=== PATIENT | male | born 1945 | race Caucasian/White ===

== ENCOUNTER → 2017-06-03 08:13 | Outpatient (CLI) | payer MEDICARE, SELFPAY ==
[2017-06-03 09:06] LABS: Basophils # 0.1 K/mm3 (0-0.2); Basophils % 0.9 % (0.1-2.0); Eosinophils # 0.3 K/mm3 (0.0-0.4); Eosinophils % 4.1 % (0.1-12.0); Hematocrit 41.1 % (42.0-52.0); Hemoglobin 13.4 g/dL (14.1-18.0); Lymphocytes # 2.4 K/mm3 (0.7-4.5); Lymphocytes % 39.1 K/mm3 (10-50); Mean Corpuscular HGB Conc 32.7 g/dL (31.8-35.4); Mean Corpuscular Hemoglobin 31.3 pg (27.0-31.2); Mean Corpuscular Volume 95.8 fl (80-94); Monocytes # 0.2 K/mm3 (0.1-1.0); Monocytes % 3.7 % (1.7-9.3); Neutrophils # 3.2 K/mm3 (1.8-7.8); Neutrophils % 52.1 % (37.0-80.0); Platelet Count 121 K/mm3 (142-424); Red Blood Count 4.29 M/mm3 (4.60-6.20); Red Cell Distribution Width 14.5 % (11.5-17.5); White Blood Count 6.2 K/mm3 (4.8-10.8)
[2017-06-03 11:03] LABS: Alanine Aminotransferase 32 U/L (12-78); Albumin/Globulin Ratio 1.3 (1.1-1.8); Alkaline Phosphatase 75 U/L (46-116); Anion Gap 9.6 mEq/L (5-15); Aspartate Amino Transferase 27 U/L (15-37); Bilirubin,Total 0.4 mg/dL (0.2-1.0); Blood Urea Nitrogen 18 mg/dL (7-18); Calcium 8.8 mg/dL (8.5-10.1); Carbon Dioxide 32 mmol/L (21.0-32.0); Chloride 104 mmol/L (98-107); Chol/HDL Ratio 3.1 (1-3.5); Cholesterol 94 mg/dL (140-200); Estimated Glomerular Filt Rate 50 ml/min (>60); GFR (African American) 61 ML/MIN (>60); Globulin 3.1 gm/dl (1.3-3.2); Glucose 142 mg/dL (74-106); HDL Cholesterol 30 mg/dL (27-67); LDL Cholesterol 10 mg/dL (0-130); Potassium 4.6 mmoL/L (3.5-5.1); Sodium 141 mmol/L (136-145); Total Protein,Serum 7.1 gm/dL (6.4-8.2); Triglycerides 269 mg/dL (30-200); VLDL Cholesterol 54 mg/dL (0-40)
[2017-06-03 11:59] LABS: Hemoglobin A1C 7.6 % (0.0-7.0)
[2017-06-04 16:22] LABS: Albumin 4.1 g/dL (2.9-4.4); Alpha-1-Globulin 0.2 g/dL (0.0-0.4); Alpha-2-Globulin 0.8 g/dL (0.4-1.0); Gamma Globulin 1.1 g/dL (0.4-1.8); Protein, Total 7.2 g/dL (6.0-8.5)
[2017-06-04 20:10] LABS: Microalbumin, Urine 39.2 ug/mL (Not Estab.)
== END ==
PROVIDERS: PCP Physician Assistant; Visit Provider Internal Medicine
DX: I10 Essential (primary) hypertension (principal); E11.9 Type 2 diabetes mellitus without complications; E78.5 Hyperlipidemia, unspecified
CPT/HCPCS: 36415; 80053; 80061; 82043; 83036; 84165; 85025

== ENCOUNTER → 2017-06-09 10:01 | Outpatient (CLI) | payer MEDICARE, SELFPAY ==
[2017-06-09 10:23] LABS: Basophils # 0.1 K/mm3 (0-0.2); Basophils % 0.7 % (0.1-2.0); Eosinophils # 0.3 K/mm3 (0.0-0.4); Eosinophils % 4.3 % (0.1-12.0); Hematocrit 40.5 % (42.0-52.0); Hemoglobin 13.4 g/dL (14.1-18.0); Lymphocytes # 2.7 K/mm3 (0.7-4.5); Mean Corpuscular HGB Conc 33.1 g/dL (31.8-35.4); Mean Corpuscular Hemoglobin 31.8 pg (27.0-31.2); Mean Platelet Volume 8.2 fl (7.4-10.4); Monocytes # 0.3 K/mm3 (0.1-1.0); Monocytes % 3.9 % (1.7-9.3); Neutrophils # 4.1 K/mm3 (1.8-7.8); Neutrophils % 55.1 % (37.0-80.0); Platelet Count 126 K/mm3 (142-424); Red Blood Count 4.22 M/mm3 (4.60-6.20); Red Cell Distribution Width 14.6 % (11.5-17.5); White Blood Count 7.5 K/mm3 (4.8-10.8)
[2017-06-09 11:42] LABS: Alanine Aminotransferase 35 U/L (12-78); Albumin Level 4.1 gm/dL (3.4-5.0); Albumin/Globulin Ratio 1.3 (1.1-1.8); Alkaline Phosphatase 65 U/L (46-116); Anion Gap 16.1 mEq/L (5-15); Aspartate Amino Transferase 26 U/L (15-37); Bilirubin,Total 0.5 mg/dL (0.2-1.0); Blood Urea Nitrogen 23 mg/dL (7-18); Calcium 9.2 mg/dL (8.5-10.1); Carbon Dioxide 30 mmol/L (21.0-32.0); Chloride 103 mmol/L (98-107); Estimated Glomerular Filt Rate 50 ml/min (>60); GFR (African American) 61 ML/MIN (>60); Globulin 3.2 gm/dl (1.3-3.2); Glucose 188 mg/dL (74-106); Potassium 5.1 mmoL/L (3.5-5.1); Sodium 144 mmol/L (136-145); Total Protein,Serum 7.3 gm/dL (6.4-8.2)
== END ==
PROVIDERS: PCP Internal Medicine; Visit Provider Internal Medicine
DX: C43.9 Malignant melanoma of skin, unspecified (principal); E11.9 Type 2 diabetes mellitus without complications
CPT/HCPCS: 36415; 80053; 85025

== ENCOUNTER → 2017-06-15 13:00 | Outpatient (CLI) | payer MEDICARE, SELFPAY ==
--- NOTE | 2017-06-15 13:05 | CT_ITS ---
CT head/brain wo/w con HISTORY: Dizziness, imbalance ITS.REASON: MULTIPLE LYELOMA, DM ORDERING PHYSICIAN: Martin Jacome MD PATIENT AGE: 71 years COMPARISON: 10/14/2014 TECHNIQUE: Axial images obtained without and with contrast. 75 mL's Isovue-300 utilized Brain and bone windows reviewed. FINDINGS: No midline shift, mass effect, intracranial hemorrhage, hydrocephalus, or extra-axial fluid collection is evident. No enhancing lesions are evident. The cerebellum and posterior fossa have an unremarkable appearance. No obvious enhancing cerebellopontine angle mass. Mild periventricular ischemic gliotic changes are noted. The calvarium has an unremarkable appearance. No sinus air-fluid level. There is a 2 cm retention cyst in the sphenoid sinus on the right there is mild mucosal thickening of the ethmoid sinuses. Small amount fluid is present in the left mastoid sinus.. IMPRESSION: 1. No acute intracranial findings. No enhancing lesions 2. Mild sinus disease 3. Fluid within the left mastoid sinus suggesting underlying inflammatory change
--- NOTE | 2017-06-15 14:14 | HMH.ITSHM ---
VITAMIN OTC CALCIUM B12 JANUVIA GLIPIZIDE FUROSEMIDE MYRON ASPIRIN GABAPENTIN LYRICA LOSARTAN POTASSIUM ROSUVASTATIN CALCIUM POTASSIUM CL
== END ==
PROVIDERS: Family Provider Physician Assistant; PCP Internal Medicine; Visit Provider Internal Medicine
DX: C90.01 Multiple myeloma in remission (principal)
CPT/HCPCS: 70470; Q9967

== ENCOUNTER → 2017-10-06 07:22 | Outpatient (CLI) | payer MEDICARE, SELFPAY ==
[2017-10-06 08:19] LABS: Basophils % 0.7 % (0.1-2.0); Eosinophils # 0.3 K/mm3 (0.0-0.4); Eosinophils % 4.1 % (0.1-12.0); Hematocrit 39.3 % (42.0-52.0); Hemoglobin 13.2 g/dL (14.1-18.0); Mean Corpuscular HGB Conc 33.5 g/dL (31.8-35.4); Mean Corpuscular Hemoglobin 31.6 pg (27.0-31.2); Mean Corpuscular Volume 94.4 fl (80-94); Mean Platelet Volume 8.3 fl (7.4-10.4); Monocytes # 0.2 K/mm3 (0.1-1.0); Monocytes % 3.9 % (1.7-9.3); Neutrophils # 3.5 K/mm3 (1.8-7.8); Neutrophils % 58.4 % (37.0-80.0); Platelet Count 124 K/mm3 (142-424); Red Blood Count 4.16 M/mm3 (4.60-6.20); Red Cell Distribution Width 14.5 % (11.5-17.5)
[2017-10-06 10:04] LABS: Chol/HDL Ratio 3.6 (1-3.5); Cholesterol 109 mg/dL (140-200); HDL Cholesterol 30 mg/dL (27-67); LDL Cholesterol 3 mg/dL (0-130); Triglycerides 381 mg/dL (30-200); VLDL Cholesterol 76 mg/dL (0-40)
[2017-10-06 10:07] LABS: Alanine Aminotransferase 34 U/L (12-78); Albumin Level 3.8 gm/dL (3.4-5.0); Albumin/Globulin Ratio 1.2 (1.1-1.8); Alkaline Phosphatase 75 U/L (46-116); Anion Gap 12.7 mEq/L (5-15); Aspartate Amino Transferase 27 U/L (15-37); Bilirubin,Total 0.5 mg/dL (0.2-1.0); Blood Urea Nitrogen 19 mg/dL (7-18); Calcium 9.4 mg/dL (8.5-10.1); Carbon Dioxide 30 mmol/L (21.0-32.0); Chloride 105 mmol/L (98-107); Creatinine,Serum 1.34 mg/dL (0.70-1.30); Estimated Glomerular Filt Rate 53 ml/min (>60); GFR (African American) 64 ML/MIN (>60); Globulin 3.3 gm/dl (1.3-3.2); Potassium 4.7 mmoL/L (3.5-5.1); Sodium 143 mmol/L (136-145); Total Protein,Serum 7.1 gm/dL (6.4-8.2)
[2017-10-06 11:15] LABS: Glucose 171 mg/dL (74-106)
[2017-10-07 07:20] LABS: Immunoglobulin A, Qn 166 mg/dL (61-437); Immunoglobulin G, Qn 970 mg/dL (700-1600)
[2017-10-07 21:16] LABS: Immunoglobulin M, Qn 91 mg/dL (20-172)
[2017-10-07 21:17] LABS: Microalbumin, Urine 18.9 ug/mL (Not Estab.)
== END ==
PROVIDERS: Internal Medicine; Visit Provider Physician Assistant
DX: E11.9 Type 2 diabetes mellitus without complications (principal); I10 Essential (primary) hypertension; E78.5 Hyperlipidemia, unspecified; C90.00 Multiple myeloma not having achieved remission
CPT/HCPCS: 36415; 80053; 80061; 82043; 82784; 83036; 85025

== ENCOUNTER → 2018-04-21 07:42 | Outpatient (CLI) | payer MEDICARE, SELFPAY ==
[2018-04-21 08:48] LABS: Basophils # 0.1 K/mm3 (0-0.2); Basophils % 0.9 % (0.1-2.0); Eosinophils # 0.3 K/mm3 (0.0-0.4); Eosinophils % 4.4 % (0.1-12.0); Hematocrit 43.9 % (42.0-52.0); Hemoglobin 13.7 g/dL (14.1-18.0); Lymphocytes # 2.4 K/mm3 (0.7-4.5); Lymphocytes % 35.1 % (10-50); Mean Corpuscular HGB Conc 31.2 g/dL (31.8-35.4); Mean Corpuscular Hemoglobin 30.8 pg (27.0-31.2); Mean Corpuscular Volume 98.7 fl (80-94); Mean Platelet Volume 7.4 fl (7.4-10.4); Monocytes # 0.3 K/mm3 (0.1-1.0); Monocytes % 4.1 % (1.7-9.3); Neutrophils # 3.8 K/mm3 (1.8-7.8); Neutrophils % 55.5 % (37.0-80.0); Platelet Count 133 K/mm3 (142-424); Red Blood Count 4.45 M/mm3 (4.60-6.20); Red Cell Distribution Width 14.9 % (11.5-17.5); White Blood Count 6.8 K/mm3 (4.8-10.8)
[2018-04-21 09:01] LABS: Hemoglobin A1C 7.4 % (0.0-7.0)
[2018-04-21 09:22] LABS: Alanine Aminotransferase 41 U/L (12-78); Albumin/Globulin Ratio 1.2 (1.1-1.8); Alkaline Phosphatase 73 U/L (46-116); Aspartate Amino Transferase 26 U/L (15-37); Bilirubin,Total 0.3 mg/dL (0.2-1.0); Blood Urea Nitrogen 24 mg/dL (7-18); Calcium 9.7 mg/dL (8.5-10.1); Carbon Dioxide 31 mmol/L (21.0-32.0); Chloride 105 mmol/L (98-107); Chol/HDL Ratio 2.8 (1-3.5); Cholesterol 94 mg/dL (140-200); Creatinine,Serum 1.54 mg/dL (0.70-1.30); Estimated Glomerular Filt Rate 45 ml/min (>60); Free T4 (Free Thyroxine) 0.41 ng/dl (0.76-1.46); GFR (African American) 54 ML/MIN (>60); Globulin 3.3 gm/dl (1.3-3.2); Glucose 156 mg/dL (74-106); HDL Cholesterol 33 mg/dL (27-67); LDL Cholesterol 21 mg/dL (0-130); Sodium 144 mmol/L (136-145); Thyroid Stimulating Hormone 22.72 uIU/ml (0.358-3.740); Total Protein,Serum 7.3 gm/dL (6.4-8.2); Triglycerides 200 mg/dL (30-200); VLDL Cholesterol 40 mg/dL (0-40)
[2018-04-22 15:11] LABS: Microalbumin, Urine 10.2 ug/mL (Not Estab.)
[2018-04-22 15:17] LABS: Albumin 3.8 g/dL (2.9-4.4); Alpha-1-Globulin 0.2 g/dL (0.0-0.4); Alpha-2-Globulin 0.8 g/dL (0.4-1.0); Gamma Globulin 1.2 g/dL (0.4-1.8); Protein, Total 7.1 g/dL (6.0-8.5)
== END ==
PROVIDERS: PCP Physician Assistant; Visit Provider Internal Medicine
DX: C90.01 Multiple myeloma in remission (principal); E11.9 Type 2 diabetes mellitus without complications; E78.5 Hyperlipidemia, unspecified; I10 Essential (primary) hypertension
CPT/HCPCS: 36415; 80053; 80061; 82043; 83036; 84155; 84165; 84439; 84443; 85025

== ENCOUNTER → 2018-10-19 08:41 | Outpatient (CLI) | payer MEDICARE, SELFPAY ==
[2018-10-19 09:06] LABS: Basophils # 0.1 K/mm3 (0-0.2); Basophils % 0.7 % (0.1-2.0); Eosinophils # 0.4 K/mm3 (0.0-0.4); Eosinophils % 4.5 % (0.1-12.0); Hematocrit 42.2 % (42.0-52.0); Hemoglobin 13.4 g/dL (14.1-18.0); Lymphocytes # 2.2 K/mm3 (0.7-4.5); Lymphocytes % 28.4 % (10-50); Mean Corpuscular HGB Conc 31.7 g/dL (31.8-35.4); Mean Corpuscular Hemoglobin 30.4 pg (27.0-31.2); Monocytes # 0.3 K/mm3 (0.1-1.0); Monocytes % 3.4 % (1.7-9.3); Neutrophils # 4.9 K/mm3 (1.8-7.8); Neutrophils % 62.9 % (37.0-80.0); Platelet Count 154 K/mm3 (142-424); Red Blood Count 4.39 M/mm3 (4.60-6.20); Red Cell Distribution Width 14.5 % (11.5-17.5); White Blood Count 7.8 K/mm3 (4.8-10.8)
[2018-10-19 10:23] LABS: Chol/HDL Ratio 3.5 (1-3.5); Cholesterol 87 mg/dL (140-200); HDL Cholesterol 25 mg/dL (27-67); LDL Cholesterol 15 mg/dL (0-130); Triglycerides 237 mg/dL (30-200); VLDL Cholesterol 47 mg/dL (0-40)
[2018-10-19 10:27] LABS: Alanine Aminotransferase 36 U/L (12-78); Albumin Level 3.7 gm/dL (3.4-5.0); Albumin/Globulin Ratio 1.2 (1.1-1.8); Alkaline Phosphatase 70 U/L (46-116); Anion Gap 12.7 mEq/L (5-15); Aspartate Amino Transferase 28 U/L (15-37); Bilirubin,Total 0.4 mg/dL (0.2-1.0); Blood Urea Nitrogen 18 mg/dL (7-18); Calcium 9.2 mg/dL (8.5-10.1); Carbon Dioxide 28 mmol/L (21.0-32.0); Chloride 107 mmol/L (98-107); Estimated Glomerular Filt Rate 54 ml/min (>60); GFR (African American) 66 ML/MIN (>60); Globulin 3.2 gm/dl (1.3-3.2); Glucose 177 mg/dL (74-106); Potassium 4.7 mmoL/L (3.5-5.1); Sodium 143 mmol/L (136-145); Total Protein,Serum 6.9 gm/dL (6.4-8.2)
[2018-10-19 11:23] LABS: Hemoglobin A1C 7.4 % (0.0-7.0)
[2018-10-20 15:23] LABS: Albumin 3.7 g/dL (2.9-4.4); Alpha-1-Globulin 0.3 g/dL (0.0-0.4); Alpha-2-Globulin 0.8 g/dL (0.4-1.0); Free Kappa Lt Chains 26.8 mg/L (3.3-19.4); Free Lambda Lt Chains 20.5 mg/L (5.7-26.3); Gamma Globulin 1.2 g/dL (0.4-1.8); Immunoglobulin A, Qn 192 mg/dL (61-437); Immunoglobulin G, Qn 1003 mg/dL (700-1600); Immunoglobulin M, Qn 101 mg/dL (15-143)
== END ==
PROVIDERS: Nurse Practitioner Family; Visit Provider Internal Medicine Medical Oncology
DX: E11.8 Type 2 diabetes mellitus with unspecified complications (principal); E78.5 Hyperlipidemia, unspecified; I10 Essential (primary) hypertension; Z79.84 Long term (current) use of oral hypoglycemic drugs
CPT/HCPCS: 36415; 80053; 80061; 82784; 83036; 83883; 84155; 84165; 85025; 86334

== ENCOUNTER → 2019-01-19 08:43 | Outpatient (CLI) | payer MEDICARE, SELFPAY ==
[2019-01-19 09:18] LABS: Basophils % 0.5 % (0.1-2.0); Eosinophils # 0.3 K/mm3 (0.0-0.4); Hematocrit 39.4 % (42.0-52.0); Hemoglobin 12.9 g/dL (14.1-18.0); Lymphocytes # 1.9 K/mm3 (0.7-4.5); Lymphocytes % 31.3 % (10-50); Mean Corpuscular HGB Conc 32.8 g/dL (31.8-35.4); Mean Corpuscular Hemoglobin 30.6 pg (27.0-31.2); Mean Corpuscular Volume 93.2 fl (80-94); Mean Platelet Volume 7.6 fl (7.4-10.4); Monocytes # 0.4 K/mm3 (0.1-1.0); Monocytes % 6.1 % (1.7-9.3); Neutrophils # 3.4 K/mm3 (1.8-7.8); Platelet Count 151 K/mm3 (142-424); Red Blood Count 4.23 M/mm3 (4.60-6.20); Red Cell Distribution Width 14.4 % (11.5-17.5)
[2019-01-19 10:19] LABS: Alanine Aminotransferase 27 U/L (12-78); Albumin Level 3.6 gm/dL (3.4-5.0); Albumin/Globulin Ratio 1.1 (1.1-1.8); Alkaline Phosphatase 77 U/L (46-116); Anion Gap 12.5 mEq/L (5-15); Aspartate Amino Transferase 24 U/L (15-37); Bilirubin,Total 0.4 mg/dL (0.2-1.0); Blood Urea Nitrogen 15 mg/dL (7-18); Carbon Dioxide 29 mmol/L (21.0-32.0); Chloride 106 mmol/L (98-107); Chol/HDL Ratio 3.7 (1-3.5); Cholesterol 93 mg/dL (140-200); Creatinine,Serum 1.33 mg/dL (0.70-1.30); Estimated Glomerular Filt Rate 53 ml/min (>60); Free Thyroxine Index 1.5 ug/dL (5.93-13.13); GFR (African American) 64 ML/MIN (>60); Globulin 3.4 gm/dl (1.3-3.2); Glucose 150 mg/dL (74-106); HDL Cholesterol 25 mg/dL (27-67); LDL Cholesterol 24 mg/dL (0-130); Potassium 4.5 mmoL/L (3.5-5.1); Sodium 143 mmol/L (136-145); T4 (Thyroxine) 4.8 ug/dl (4.7-13.3); Thyroid Stimulating Hormone 8.19 uIU/ml (0.358-3.740); Triglycerides 222 mg/dL (30-200); Triiodothryronine (T3) Uptake 31 % (31-39); VLDL Cholesterol 44 mg/dL (0-40)
[2019-01-19 10:45] LABS: Hemoglobin A1C 6.8 % (0.0-7.0)
[2019-01-20 16:20] LABS: Albumin 3.4 g/dL (2.9-4.4); Alpha-1-Globulin 0.3 g/dL (0.0-0.4); Alpha-2-Globulin 0.8 g/dL (0.4-1.0); Gamma Globulin 1.2 g/dL (0.4-1.8); Protein, Total 6.7 g/dL (6.0-8.5)
[2019-01-20 18:08] LABS: Free Kappa Lt Chains 29.7 mg/L (3.3-19.4); Free Lambda Lt Chains 18.8 mg/L (5.7-26.3)
== END ==
PROVIDERS: Internal Medicine Hematology & Oncology; Visit Provider Nurse Practitioner Family
DX: E11.8 Type 2 diabetes mellitus with unspecified complications (principal); E78.5 Hyperlipidemia, unspecified; I10 Essential (primary) hypertension; C90.01 Multiple myeloma in remission; Z79.84 Long term (current) use of oral hypoglycemic drugs
CPT/HCPCS: 36415; 80053; 80061; 83036; 83883; 84155; 84165; 84436; 84443; 84479; 85025

== ENCOUNTER → 2019-05-18 08:25 | Outpatient (CLI) | payer MEDICARE, SELFPAY ==
[2019-05-18 13:53] LABS: Basophils # 0.1 K/mm3 (0-0.2); Basophils % 0.7 % (0.1-2.0); Eosinophils # 0.5 K/mm3 (0.0-0.4); Eosinophils % 5.8 % (0.1-12.0); Hematocrit 44.4 % (42.0-52.0); Hemoglobin 14.5 g/dL (14.1-18.0); Lymphocytes # 2.5 K/mm3 (0.7-4.5); Lymphocytes % 31.2 % (10-50); Mean Corpuscular HGB Conc 32.6 g/dL (31.8-35.4); Mean Corpuscular Hemoglobin 30.2 pg (27.0-31.2); Mean Corpuscular Volume 92.8 fl (80-94); Mean Platelet Volume 7.9 fl (7.4-10.4); Monocytes # 0.3 K/mm3 (0.1-1.0); Monocytes % 4.2 % (1.7-9.3); Neutrophils # 4.6 K/mm3 (1.8-7.8); Neutrophils % 58.2 % (37.0-80.0); Platelet Count 151 K/mm3 (142-424); Red Blood Count 4.78 M/mm3 (4.60-6.20); Red Cell Distribution Width 13.9 % (11.5-17.5); White Blood Count 7.9 K/mm3 (4.8-10.8)
[2019-05-18 14:21] LABS: Alanine Aminotransferase 26 U/L (12-78); Albumin Level 3.9 gm/dL (3.4-5.0); Albumin/Globulin Ratio 1.2 (1.1-1.8); Alkaline Phosphatase 60 U/L (46-116); Anion Gap 13.4 mEq/L (5-15); Aspartate Amino Transferase 26 U/L (15-37); Bilirubin,Total 0.4 mg/dL (0.2-1.0); Blood Urea Nitrogen 22 mg/dL (7-18); Calcium 9.2 mg/dL (8.5-10.1); Carbon Dioxide 27 mmol/L (21.0-32.0); Chloride 104 mmol/L (98-107); Chol/HDL Ratio 3.3 (1-3.5); Cholesterol 102 mg/dL (140-200); Creatinine,Serum 1.34 mg/dL (0.70-1.30); Estimated Glomerular Filt Rate 53 ml/min (>60); Free Thyroxine Index 3.1 ug/dL (5.93-13.13); GFR (African American) 64 ML/MIN (>60); Globulin 3.2 gm/dl (1.3-3.2); Glucose 137 mg/dL (74-106); HDL Cholesterol 31 mg/dL (27-67); LDL Cholesterol 39 mg/dL (0-130); Potassium 4.4 mmoL/L (3.5-5.1); Sodium 140 mmol/L (136-145); T4 (Thyroxine) 8.6 ug/dl (4.7-13.3); Thyroid Stimulating Hormone 2.16 uIU/ml (0.358-3.740); Total Protein,Serum 7.1 gm/dL (6.4-8.2); Triglycerides 160 mg/dL (30-200); Triiodothryronine (T3) Uptake 36 % (31-39); VLDL Cholesterol 32 mg/dL (0-40)
[2019-05-18 15:38] LABS: Hemoglobin A1C 6.6 % (0.0-7.0)
[2019-05-19 15:28] LABS: Albumin 3.9 g/dL (2.9-4.4); Alpha-1-Globulin 0.2 g/dL (0.0-0.4); Alpha-2-Globulin 0.7 g/dL (0.4-1.0); Gamma Globulin 1.2 g/dL (0.4-1.8); Immunoglobulin A, Qn 180 mg/dL (61-437); Immunoglobulin G, Qn 1196 mg/dL (700-1600); Protein, Total 7.2 g/dL (6.0-8.5)
[2019-05-19 16:10] LABS: Free Kappa Lt Chains 23.9 mg/L (3.3-19.4); Free Lambda Lt Chains 16.6 mg/L (5.7-26.3)
[2019-05-19 17:32] LABS: Immunoglobulin M, Qn 114 mg/dL (15-143)
== END ==
PROVIDERS: Internal Medicine Medical Oncology; PCP Nurse Practitioner Family; Visit Provider Nurse Practitioner Family
DX: E11.8 Type 2 diabetes mellitus with unspecified complications (principal); I10 Essential (primary) hypertension; E03.9 Hypothyroidism, unspecified; E78.5 Hyperlipidemia, unspecified; C90.00 Multiple myeloma not having achieved remission
CPT/HCPCS: 36415; 80053; 80061; 82784; 83036; 83883; 84155; 84165; 84436; 84443; 84479; 85025; 86334

== ENCOUNTER 2019-09-01 10:21 | Emergency (ER) | payer MEDICARE, SELFPAY ==
[2019-09-01 10:29] VITALS: BP 142/86; PULSE 74; RESP 19; TEMP 36.6; O2SAT 98; BMI 33.1
--- NOTE | 2019-09-01 10:29 | HMH.EDUTC ---
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 Watch the for signs of worsening infection, such as redness, swelling, drainage, fever. etc. Take tylenol or ibuprofen for pain. Follow up with your regular doctor in 2 to 3 days for a wound recheck. GO TO THE ER FOR ANY WORSENING SYMPTOMS OR CONCERNS. Prescriptions: clindamycin HCL [Clindamycin HCl 300mg Cap] 300 mg PO Q6 10 Days #40 cap Transmission Status: Received by [facility] Referrals: Provider,Referral, [Primary Care Provider] - Time of Disposition: 12:22 Medical Decision Making - Medical Records Medical records reviewed: No: I reviewed the patient's medical records. - Soren Inquiry Pt receiving controlled substance: No Vital Signs: 09/01/19 10:29 09/01/19 12:23 Temperature 97.8 F 97.8 F Temperature Source Oral Oral Pulse Rate 74 Pulse Rate [Right Brachial] 74 Respiratory Rate 19 19 Blood Pressure 142/86 H Blood Pressure [Right Arm] 142/86 H Blood Pressure Mean [Right Arm] 104 Blood Pressure Source Automatic Cuff Blood Pressure Source [Right Arm] Automatic Cuff Blood Pressure Position Sitting Blood Pressure Position [Right Arm] Sitting 02 Sat by Pulse Oximetry 98 Oxygen Delivery Method Room Air Room Air Orders (Tests/Meds): ED MEDICATIONS Discontinued Medications Generic Name Dose Route Start Last Admin Trade Name Freq PRN Reason Stop Dose Admin Clindamycin Phosphate 900 mg/ 106 mls @ 100 mls/hr 09/01/19 11:06 09/01/19 11:31 Sodium Chloride IV 09/01/19 12:09 100 mls/hr ONCE ONE Administration Protocol Ondansetron HCl 4 mg 09/01/19 11:37 09/01/19 11:37 Zofran 4mg Odt SL 09/01/19 11:38 4 mg ONCE ONE Administration ORDERS Category Date Time Status Wound Culture and Gram Stain Stat Micro 09/01/19 12:20 Results - Radiology Data #1 Image(s): Hand Image Reviewed: Yes I reviewed the patient's radiology image, Yes I have reviewed radiologist's interpretation Preliminary Findings: Normal/NAD FINDINGS: No fracture or dislocation. No lytic or blastic change. There is normal mineralization. The joint spaces are well-preserved. No significant degenerative/arthritic changes. No erosive changes evident. Other findings:None. IMPRESSION: No acute findings. Medical Decision Narrative: I got Dr. Ramirez to examine the hand with me since he is a diabetic and it appears infected. 900 mg iv clindamycin given in the [facility]. 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 He states that since then he has had pain and swelling around the area of the injury. He is diabetic and he has a history of multiple myeloma. - Related Data Home Medications Medication Instructions Recorded Confirmed aspirin 81 mg tablet,delayed 81 mg PO QDAY 06/09/17 07/11/19 release calcium carbonate 600 mg calcium 600 mg PO BID tab 06/09/17 07/11/19 (1,500 mg) tablet gabapentin 300 mg capsule 300 mg PO TID 06/09/17 07/11/19 losartan 25 mg tablet 25 mg PO QDAY 06/09/17 07/11/19 rosuvastatin 20 mg tablet 20 mg PO QDAY
--- NOTE | 2019-09-01 10:31 | XR_ITS ---
PROCEDURE: XR HAND LT MIN 3V CLINICAL INDICATION: cut on metal Pain redness and swelling following injury COMPARISON: No exams were available for comparison FINDINGS: No fracture or dislocation. No lytic or blastic change. There is normal mineralization. The joint spaces are well-preserved. No significant degenerative/arthritic changes. No erosive changes evident. Other findings:None. IMPRESSION: No acute findings. Dictated by: Vineet Maynard MD 09/01/2019 11:20 Electronically signed by Vineet Maynard MD in [place] 09/01/2019 11:20
--- NOTE | 2019-09-01 11:38 | PC.NURSE ---
SALINE LOCK STARTED IN RIGHT ANTECUBITAL WITH #20 AFTER 1 STICK. CLINDAMYCIN RECEIVED FROM PHARMACY AND HUNG AND INFUSING. PATIENT BECAME NAUSEATED AND VOMITED X 1 . GIVEN ZOFRAN 4 MG SL PER ORDERS
[2019-09-01 12:23] VITALS: BP 142/86; PULSE 74; RESP 19; TEMP 36.6; O2SAT 98
--- NOTE | 2019-09-03 16:52 | PC.NURSE ---
CRITICAL LAB RESULTS RECEIVED FROM LAB . WOUND CULTURE OF RIGHT HAND POSITIVE FOR MRSA. REPORTED TO YADIRA ORTIZ APRN. PATIENT IS TAKING APPROPRIATE ANTIBIOTICS PER LAB REPORT
== END 2019-09-01 12:32 | disposition home or self-care (01) ==
PROVIDERS: Emergency Provider Nurse Practitioner Family
DX: L03.114 Cellulitis of left upper limb (principal); E11.69 Type 2 diabetes mellitus with other specified complication; I10 Essential (primary) hypertension; E78.5 Hyperlipidemia, unspecified; F41.9 Anxiety disorder, unspecified; Z79.899 Other long term (current) drug therapy
CPT/HCPCS: G0463; 73130; 87070; 87077; 87186; 87205; 96365; 99202

== ENCOUNTER → 2019-09-12 08:05 | Outpatient (CLI) | payer MEDICARE, SELFPAY ==
[2019-09-12 14:18] LABS: Alanine Aminotransferase 26 U/L (12-78); Albumin Level 4.3 g/dl (3.5-5.0); Albumin/Globulin Ratio 1.5 (1.1-1.8); Alkaline Phosphatase 67 U/L (38-126); Anion Gap 12.4 mEq/L (5-15); Aspartate Amino Transferase 36 U/L (17-59); Bilirubin,Total 0.3 mg/dl (0.2-1.3); Blood Urea Nitrogen 22 mg/dl (9-20); Carbon Dioxide 29 mmol/L (22.0-30.0); Chloride 104 mmol/L (98-107); Chol/HDL Ratio 2.9 (1-3.5); Cholesterol 109 mg/dl (140-200); Estimated Glomerular Filt Rate 54 ml/min (>60); GFR (African American) 66 ML/MIN (>60); Globulin 2.8 g/dL (1.3-3.2); Glucose 144 mg/dl (74-100); HDL Cholesterol 38 mg/dl (40-60); Potassium 4.4 mmoL/L (3.5-5.1); Sodium 141 mmol/L (136-145); Total Protein,Serum 7.1 g/dl (6.3-8.2); Triglycerides 270 mg/dl (30-150); VLDL Cholesterol 54 mg/dL (0-40)
[2019-09-12 14:21] LABS: Basophils # 0.1 K/mm3 (0-0.2); Basophils % 1.3 % (0.1-2.0); Eosinophils # 0.4 K/mm3 (0.0-0.4); Eosinophils % 6.6 % (0.1-12.0); Hematocrit 43.5 % (42.0-52.0); Hemoglobin 14.4 g/dL (14.1-18.0); Lymphocytes # 2.2 K/mm3 (0.7-4.5); Lymphocytes % 34.5 % (10-50); Mean Corpuscular HGB Conc 33.1 g/dL (31.8-35.4); Mean Corpuscular Hemoglobin 30.3 pg (27.0-31.2); Mean Corpuscular Volume 91.5 fl (80-94); Mean Platelet Volume 8.5 fl (7.4-10.4); Monocytes # 0.3 K/mm3 (0.1-1.0); Monocytes % 4.5 % (1.7-9.3); Neutrophils # 3.5 K/mm3 (1.8-7.8); Neutrophils % 53.2 % (37.0-80.0); Platelet Count 183 K/mm3 (142-424); Red Blood Count 4.75 M/mm3 (4.60-6.20); Red Cell Distribution Width 13.8 % (11.5-17.5); White Blood Count 6.5 K/mm3 (4.8-10.8)
[2019-09-12 14:30] LABS: Direct LDL Cholesterol 59.65 mg/dL (100-129)
[2019-09-12 14:32] LABS: Hemoglobin A1C 6.5 % (4.0-6.0)
[2019-09-12 14:35] LABS: Free Thyroxine Index 2.4 ug/dL (5.93-13.13); T4 (Thyroxine) 7.3 ug/dl (5.53-11.0); Triiodothryronine (T3) Uptake 33 % (23.5-40.5)
[2019-09-12 14:49] LABS: Thyroid Stimulating Hormone 2.18 uIU/mL (0.465-4.68)
[2019-09-13 13:39] LABS: Immunoglobulin A, Qn 178 mg/dL (61-437); Immunoglobulin G, Qn 1131 mg/dL (603-1613)
[2019-09-13 15:29] LABS: Albumin 3.8 g/dL (2.9-4.4); Alpha-1-Globulin 0.3 g/dL (0.0-0.4); Alpha-2-Globulin 0.8 g/dL (0.4-1.0); Gamma Globulin 1.2 g/dL (0.4-1.8); Protein, Total 7.2 g/dL (6.0-8.5)
[2019-09-15 09:16] LABS: Immunoglobulin M, Qn 122 mg/dL (15-143)
== END ==
PROVIDERS: Internal Medicine Medical Oncology; Visit Provider Nurse Practitioner Family
DX: E03.9 Hypothyroidism, unspecified (principal); I10 Essential (primary) hypertension; E78.5 Hyperlipidemia, unspecified; E11.8 Type 2 diabetes mellitus with unspecified complications; Z79.84 Long term (current) use of oral hypoglycemic drugs
CPT/HCPCS: 36415; 80053; 80061; 82784; 83036; 83883; 84155; 84165; 84436; 84443; 84479; 85025; 86334

== ENCOUNTER → 2019-11-03 07:04 | Outpatient (CLI) | payer MEDICARE, SELFPAY ==
--- NOTE | 2019-11-03 07:12 | NM_ITS ---
APPROVED REPORT Exam: Nuclear Stress Test Indication: HTN, DM, HYPERLIPIDEMIA, FM HX, SOB, ABN EKG Patient Location: Outpatient Stress Tech: Nevaeh Millard [place] Tech:Ellie LealMARLEN [place] RT (R)(N)(M) Ht: 5 ft 8 in Wt: 207 lbs HR: 64 bpm BP: 115/51 mmHg BSA: 2.07 m2 BMI: 31.4 History: HTN, DM, HYPERLIPIDEMIA, FM HX, SOB, ABN EKG Procedure: Patient received a 0.4 mg of intravenous Lexiscan, resting heart rate 64 bpm, resting blood pressure 115/51 mmHg, with Lexiscan maximum heart rate achived was 75 bpm which is % of the maximum predicted heart rate and blood pressure was 124/58 mmHg. Cardiac Stress and Resting SPECT Images: Cardiac Stress and Resting SPECT images were obtained using technetium 99m Myoview 31.7 mCi stress and 10.45 mCi at rest. Ejection fraction is normal at 58%. There is a fixed defect involving the apex. No reversible defects are evident. Conclusion: Normal ejection fraction of 58%. Fixed defect at the apex suggesting an area of infarction . No reversible defects evident Electronically signed by : Vineet Maynard MD 11/03/2019 15:09:47
--- NOTE | 2019-11-03 09:00 | CA_ITS ---
APPROVED REPORT Exam: Pharmacologic Technologist: Nevaeh Millard, Ht: 5 ft 8 in Wt: 207 lbs BSA: 2.07 m2 Indications: SOA/HTN/CAD Medical History Medical History: HTN, Hyperlipidemia, Diabetes Medications: Levothyroxine,,,,, Furosemide (LASIX),,,,, Aspirin,,,,, Gabapentin,,,,, Losartan,,,,, Glipizide,,,,, INSULIN,,,,, Montelukast,,,,, FeNOfibrate,,,,, Pregabalin,,,,, RoSUVASTATIN,,,,, Sitagliptin,,,,, Cardiac Risk Factors: HTN, Hyperlipidemia, DM, FHX of CAD Stress Test Details Test: Sidney Reason for pharmacologic stress test: physical limitation. HR Resting HR: 53 bpm Max Heart Rate (APMHR): 148 bpm Max HR Achieved: 80 bpm Target HR (85% APMHR): 125 bpm % of APMHR: 54 BP Resting BP: 115/51 mmHg Max BP: 124/58 mmHg ECG Clinical Exercise duration: 04:01 min Highest Stage Achieved: Exercise capacity: 1.0 METs Stress ECG Conclusion pt denied any symptoms during infusion occ PVC less than 1.5mm ST depression images to follow Test Summary REST 02:52 0.0 0.0 53 . 115/ 51 . . Stage 1 01:00 10.0 0.0 69 . . . . Stage 1 . . . . . . . Myoview Injected Stage 1 02:00 10.0 0.0 77 . . . . Stage 1 03:00 10.0 0.0 75 . 124/ 58 . . Stage 2 01:00 12.0 0.0 76 . 119/ 65 . . Stage 2 01:01 12.0 0.0 76 . 119/ 65 . Stop exercise at 04:01 RECOVERY 01:00 0.0 0.0 75 . . . . RECOVERY 02:00 0.0 0.0 73 . 124/ 80 . . RECOVERY 03:00 0.0 0.0 70 . 123/ 70 . . RECOVERY 03:24 0.0 0.0 0 . 123/ 70 . . Electronically signed by : Luis Miguel Rivera, 11/03/2019 11:21:29
== END ==
PROVIDERS: PCP Nurse Practitioner Family; Visit Provider Physician Assistant
DX: C90.00 Multiple myeloma not having achieved remission (principal); E11.9 Type 2 diabetes mellitus without complications; E78.5 Hyperlipidemia, unspecified; I10 Essential (primary) hypertension; R06.00 Dyspnea, unspecified; R94.31 Abnormal electrocardiogram [ECG] [EKG]
CPT/HCPCS: 78452; 93017; 93306; A9502; G0399; J2785

== ENCOUNTER 2019-12-20 16:59 | Inpatient (IN) | payer MEDICARE, SELFPAY ==
[2019-12-20] VITALS (21 sets, daily range): BP systolic 93–144; BP diastolic 57–79; PULSE 32–80; RESP 16–18; TEMP 36.6–36.7; O2SAT 90–98; BMI 31.7
--- NOTE | 2019-12-20 09:00 | IR_ITS ---
APPROVED REPORT Patient Location: Outpatient PROCEDURES Left heart catheterization Left ventriculogram Selective coronary angiogram Drug-eluting stent deployment to the proximal LAD INDICATION Coronary artery disease, Abnormal Myoview in the distribution of the LAD, Angina pectoris Informed consent was obtained prior to the procedure. COMPLICATIONS NONE Estimated Blood Loss: LESS THAN 10 ML TECHNIQUE One percent lidocaine used to anesthetize the right anterior aspect of the wrist. The right radial artery was accessed via the Seldinger technique. A 6 Faroese sheath was placed in the right radial artery. 2.5 mg of verapamil, 800 mcg of nitroglycerin, 1mg Lidocaine and 5000 U Heparin were given through the arterial sheath. The trap catheter was also used to perform left heart catheterization, left ventriculogram and selective coronary angiogram. At the end the diagnostic angiogram therapeutic heparin was administered and and I Rosaura left guide catheter was used to intubate the left main artery. A Choice PT extra-support wire was placed distally and a 3 mm x 22 mm resolute liza stent was deployed at 24 carmelita reducing the severe stenosis to 0%. RIKKI-3 flow was present before and after the procedure. After achieving excellent angiographic results the apparatus was removed the sheath was removed good hemostasis was achieved using TR banding patient was transferred to the postop holding her in stable condition ANGIOGRAPHIC RESULTS The left main artery Normal The left anterior descending artery Has a proximal concentric 90% stenosis followed by an additional proximal 30% stenosis. Mid LAD then has a 40 to 50% stenosis along a tortuous bend. The circumflex artery Is nondominant yet large vessel with proximal 20 and 30% stenoses The right coronary artery Is a dominant vessel and has proximal and mid vessel 10 to 20% stenoses The COX ventriculogram reveals Normal 65% The left ventricular end-diastolic pressure 15 mmHg IMPRESSION Severe proximal LAD disease Successful stenting of proximal LAD severe disease reduced to 0% with one drug-eluting stent Persistent moderate stenosis in the mid LAD Normal ejection fraction Mildly elevated LVEDP PLAN 1. Dual antiplatelet therapy 2. LDL less than 55 3. Cardiac rehabilitation 4. Avoidance of tobacco Electronically signed by : Luis Miguel Rivera, 12/20/2019 11:37:02
[2019-12-20 09:14] LABS: Basophils # 0.1 K/mm3 (0-0.2); Basophils % 0.8 % (0.1-2.0); Eosinophils # 0.5 K/mm3 (0.0-0.4); Eosinophils % 7.1 % (0.1-12.0); Hematocrit 43.9 % (42.0-52.0); Hemoglobin 15.1 g/dL (14.1-18.0); Lymphocytes # 2.7 K/mm3 (0.7-4.5); Lymphocytes % 40.9 % (10-50); Mean Corpuscular HGB Conc 34.3 g/dL (31.8-35.4); Mean Corpuscular Hemoglobin 31.7 pg (27.0-31.2); Mean Corpuscular Volume 92.5 fl (80-94); Mean Platelet Volume 7.8 fl (7.4-10.4); Monocytes # 0.3 K/mm3 (0.1-1.0); Neutrophils # 3.2 K/mm3 (1.8-7.8); Neutrophils % 47.2 % (37.0-80.0); Platelet Count 144 K/mm3 (142-424); Red Blood Count 4.75 M/mm3 (4.60-6.20); White Blood Count 6.7 K/mm3 (4.8-10.8)
[2019-12-20 09:20] LABS: Chloride 107 mmol/L (98-107)
[2019-12-20 09:21] LABS: Potassium 4.3 mmoL/L (3.5-5.1); Sodium 143 mmol/L (136-145)
[2019-12-20 09:23] LABS: Blood Urea Nitrogen 18 mg/dl (9-20); Creatinine Clearance Estimated 69 mL/min (50-200); Estimated Glomerular Filt Rate 54 ml/min (>60); GFR (African American) 66 ML/MIN (>60)
[2019-12-20 09:24] LABS: Anion Gap 13.3 mEq/L (5-15); Calcium 10.1 mg/dl (8.4-10.2); Carbon Dioxide 27 mmol/L (22.0-30.0); Glucose 119 mg/dl (74-100)
--- NOTE | 2019-12-20 13:45 | HMH.PHACLD ---
Geovani Ng has received discharge medication counseling on the following medications: PATIENT CURRENTLY TAKING LOSARTAN 25 MG DAILY, ASPIRIN [address] DAILY, AND CRESTOR 20 MG HS. MD STARTING BRILINTA 90 MG BID. MD NOT STARTING BETA PRIYANKA AT THIS TIME DUE TO LOWER HR. DISCUSSED WITH PATIENT AND PATIENT'S NEW MEDICATION AND ALSO TO HOLD METFORMIN UNTIL WEDNESDAY.
--- NOTE | 2019-12-20 16:06 | HMH.CNCARD ---
History of Present Illness Consult date: 12/20/19 Chief complaint: low HR Additional Medical History:: 1. CAD A. [facility] 12/20/2019 shows: Severe proximal LAD disease. Successful stenting of proximal LAD severe disease reduced to 0% with one drug-eluting stent. Persistent moderate stenosis in the mid LAD. Normal ejection fraction. Mildly elevated LVEDP 2. htn 3. hld 4. diabetes History of present illness: This is a 74-year-old gentleman who came into the hospital today to undergo outpatient left cardiac catheterization. The patient underwent stenting to his proximal LAD with persistent moderate stenosis in the mid LAD. The patient will be on dual antiplatelet therapy. Following left cardiac catheterization the patient got significantly bradycardic with a heart rate down in the 30s. He has been started on a dopamine drip. The patient has been admitted to the hospital secondary to his sick sinus syndrome. The patient is scheduled to undergo pacemaker placement tomorrow. He denies any chest pain or pressure. He denies any shortness of breath or edema. He denies any fever, chills, nausea, vomiting, diarrhea, PND or orthopnea. Fatigue has been noted by the patient. [facility] History I have reviewed the patient's past medical history: Yes Medical History: Reports:: Anxiety, Diabetes Mellitus Type 2, Hyperlipidemia, Hypertension, Kidney Stones Denies:: Cancer, Diabetes Mellitus Type 1, Internal Pacemaker, MRSA, Seizures *Have you ever received a pneumonia vaccine?: Yes *Have you received a flu vaccine this season?: Yes Other Medical History: Reports: Cataracts, Chemotherapy, Radiation Therapy Other Surgeries: Yes: Other. No: Pacemaker Amputation: No Fractures: Yes - *Social History Last grade of school completed: 11th or 12th Smoking Status: Never smoker Alcohol Intake: never Substance Use Type: denies use *Occupational Status:: retired Housing: house Household Members: spouse *Travel in the last 8 weeks: None - Psychiatric History Pschychiatric History:: Reports:: Anxiety Family Hx:: Cancer, Diabetes, Hyperlipidemia, Hypertension Meds Home Medications Medication Instructions Recorded Confirmed Type aspirin 81 mg tablet,delayed 81 mg PO QDAY 06/09/17 09/21/19 History release calcium carbonate 600 mg calcium 600 mg PO BID tab 06/09/17 09/21/19 History (1,500 mg) tablet gabapentin 300 mg capsule 300 mg PO TID 06/09/17 09/21/19 History losartan 25 mg tablet 25 mg PO QDAY 06/09/17 09/21/19 History rosuvastatin 20 mg tablet 20 mg PO QDAY tab 06/09/17 09/21/19 History Albuterol Sulfate [Proair Hfa 2 puffs IH Q4HP PRN #1 inh 01/23/18 09/21/19 Rx 90mcg/puff Inh] montelukast 10 mg tablet 10 mg PO QPM #90 tab 10/13/18 09/21/19 Rx fenofibrate 54 mg tablet 54 mg PO BID tab 07/11/19 09/21/19 History furosemide 20 mg tablet 20 mg PO DAILY 07/11/19 09/21/19 History levothyroxine 50 mcg capsule 88 mcg PO DAILY cap 07/11/19 09/21/19 History potassium chloride 10 mEq 10 meq PO QID tab 07/11/19 09/21/19 History tablet,extended release pregabalin 50 mg capsule 50 mg PO TID 07/11/19 09/21/19 History sitagliptin 100 mg tablet 50 mg PO QDAY tab 07/11/19 09/21/19 History insulin glargine 100 unit/mL 10 unit SQ DAILY 10/26/19 10/26/19 History subcutaneous solution glipizide 10 mg tablet 10 mg PO DAILY tab 11/30/19 History metformin 500 mg tablet,extended 500 mg PO DAILY tab 11/30/19 11/30/19 History release 24 hr Allergies Allergy/AdvReac Type Severity Reaction Status Date / Time From PHENERGAN Allergy Unknown HALLUCINATI Uncoded 11/30/19 13:14 ONS From COGENTIN AdvReac Severe MENTAL Uncoded 11/30/19 13:14 STATUS C HANGES From COMPAZINE AdvReac Severe MENTAL Uncoded 11/30/19 13:14 CHANGES From HALDOL AdvReac Severe MENTAL Uncoded 11/30/19 13:14 STATUS CHANGES From VALIUM AdvReac Intermediate HALLUCINATI Uncoded 11/30/19 13:14 ONS Review of Systems - Review of Systems Rev
[2019-12-20 16:23] LABS: CATHL Activated Clotting Time 297 SEC (74-125)
--- NOTE | 2019-12-20 17:41 | P.HP_ITS ---
*Admission Date: 12/20/19 <Veronique Roach 12/20/19 17:48> *Chief complaint: chest pain <Veronique Roach 12/20/19 17:48> *History of present illness: Mr. Ng is a 74-year-old gentleman who came into the hospital today to undergo outpatient left cardiac catheterization. The patient underwent stenting to his proximal LAD with persistent moderate stenosis in the mid LAD. The patient will be on dual antiplatelet therapy. Following left cardiac catheterization the patient got significantly bradycardic with a heart rate down in the 30s. He has been started on a dopamine drip. The patient has been admitted to the hospital secondary to his sick sinus syndrome. The patient is scheduled to undergo pacemaker placement tomorrow. He denies any chest pain or pressure. He denies any shortness of breath or edema. He denies any fever, chills, nausea, vomiting, diarrhea, PND or orthopnea. Fatigue has been noted by the patient. (the above as per Shahana Gil) <Veronique Roach 12/20/19 17:48> [facility] History I have reviewed the patient's past medical history: Yes <Veronique Roach 12/20/19 17:48> Medical History: Reports:: Anxiety, Cancer (multiple myeloma), Diabetes Mellitus Type 2, Hyperlipidemia, Hypertension, Kidney Stones Denies:: Diabetes Mellitus Type 1, Internal Pacemaker, MRSA, Seizures <Veronique Roach 12/20/19 17:48> *Have you ever received a pneumonia vaccine?: Yes <Veronique Roach 12/20/19 17:48> *Have you received a flu vaccine this season?: Yes <Veronique Roach 12/20/19 17:48> Other Medical History: Reports: Cataracts, Chemotherapy, Hypothyroidism, Radiation Therapy <Veronique Roach 12/20/19 17:48> Other Surgeries: Yes: Other. No: Pacemaker <Veronique Roach 12/20/19 17:48> Amputation: No <Veronique Roach 12/20/19 17:48> Fractures: Yes <Veronique Roach 12/20/19 17:48> - *Social History Last grade of school completed: 11th or 12th <Veronique Roach 12/20/19 17:48> Smoking Status: Never smoker <DocVeronique 12/20/19 17:48> Alcohol Intake: never <DocVeronique 12/20/19 17:48> Substance Use Type: denies use <DocVeronique 12/20/19 17:48> *Occupational Status:: retired <DocVeronique 12/20/19 17:48> Housing: house <DocVeronique 12/20/19 17:48> Household Members: spouse <DocVeronique 12/20/19 17:48> *Travel in the last 8 weeks: None <DcoVeronique 12/20/19 17:48> - Psychiatric History Pschychiatric History:: Reports:: Anxiety <DocVeronique 12/20/19 17:48> Family Hx:: Cancer, Diabetes, Hyperlipidemia, Hypertension <DocVeronique 12/20/19 17:48> Review of Systems - Constitutional Reports weakness, Denies chills, Denies fever(s) <DocVeronique 12/20/19 17:48> - Eyes Denies blurry vision, Denies double vision [facility] 12/[facility] 17:48> - ENT Denies nasal congestion, Denies sore throat <[facility] 12/20/19 17:48> - *Cardiovascular Reports shortness of breath, Denies chest pain <DocVeronique 12/20/19 17:48> - *Respiratory Reports shortness of breath, Denies cough <[facility] 12/20/19 17:48> - *Gastrointestinal Denies abdominal pain, Denies loose stools, Denies nausea, Denies vomiting <DocVeronique 12/20/19 17:48> - *Genitourinary Denies difficulty urinating, Denies painful urination <[facility] 12/20/19 17:48> - *Musculoskeletal Denies joint pain <[facility] 12/20/19 17:48> - *Neurologic Reports weakness, Denies dizziness, Denies headache(s) <oDcVeronique 12/20/19 17:48> Meds Home Medications Medication Instructions Recorded Confirmed T
--- NOTE | 2019-12-20 17:41 | HMH.HP ---
*Admission Date: 12/20/19 <Veronique Roach 12/20/19 17:48> *Chief complaint: chest pain <Veronique Roach 12/20/19 17:48> *History of present illness: Mr. Ng is a 74-year-old gentleman who came into the hospital today to undergo outpatient left cardiac catheterization. The patient underwent stenting to his proximal LAD with persistent moderate stenosis in the mid LAD. The patient will be on dual antiplatelet therapy. Following left cardiac catheterization the patient got significantly bradycardic with a heart rate down in the 30s. He has been started on a dopamine drip. The patient has been admitted to the hospital secondary to his sick sinus syndrome. The patient is scheduled to undergo pacemaker placement tomorrow. He denies any chest pain or pressure. He denies any shortness of breath or edema. He denies any fever, chills, nausea, vomiting, diarrhea, PND or orthopnea. Fatigue has been noted by the patient. (the above as per Shahana Gil) <Veronique Roach 12/20/19 17:48> [facility] History I have reviewed the patient's past medical history: Yes <Veronique Roach 12/20/19 17:48> Medical History: Reports:: Anxiety, Cancer (multiple myeloma), Diabetes Mellitus Type 2, Hyperlipidemia, Hypertension, Kidney Stones Denies:: Diabetes Mellitus Type 1, Internal Pacemaker, MRSA, Seizures <Veronique Roach 12/20/19 17:48> *Have you ever received a pneumonia vaccine?: Yes <Veronique Roach 12/20/19 17:48> *Have you received a flu vaccine this season?: Yes <Veronique Roach 12/20/19 17:48> Other Medical History: Reports: Cataracts, Chemotherapy, Hypothyroidism, Radiation Therapy <Veronique Roach 12/20/19 17:48> Other Surgeries: Yes: Other. No: Pacemaker <Veronique Roach 12/20/19 17:48> Amputation: No <Veronique Roach 12/20/19 17:48> Fractures: Yes <Veronique Roach 12/20/19 17:48> - *Social History Last grade of school completed: 11th or 12th <Veronique Roach 12/20/19 17:48> Smoking Status: Never smoker <Robby Roacha 12/20/19 17:48> Alcohol Intake: never <Robby Roacha 12/20/19 17:48> Substance Use Type: denies use <DocVeronique 12/20/19 17:48> *Occupational Status:: retired <Veronique Roach 12/20/19 17:48> Housing: house <Robby Roacha 12/20/19 17:48> Household Members: spouse <Robby Roacha 12/20/19 17:48> *Travel in the last 8 weeks: None <Robby Roacha 12/20/19 17:48> - Psychiatric History Pschychiatric History:: Reports:: Anxiety <Robby Roacha 12/20/19 17:48> Family Hx:: Cancer, Diabetes, Hyperlipidemia, Hypertension <Robby Roacha 12/20/19 17:48> Review of Systems - Constitutional Reports weakness, Denies chills, Denies fever(s) <DocVeronique 12/20/19 17:48> - Eyes Denies blurry vision, Denies double vision <DocVeronique 12/20/19 17:48> - ENT Denies nasal congestion, Denies sore throat <DocVeronique 12/20/19 17:48> - *Cardiovascular Reports shortness of breath, Denies chest pain <DocVeronique 12/20/19 17:48> - *Respiratory Reports shortness of breath, Denies cough <DocVeronique 12/20/19 17:48> - *Gastrointestinal Denies abdominal pain, Denies loose stools, Denies nausea, Denies vomiting <Robby Roacha 12/20/19 17:48> - *Genitourinary Denies difficulty urinating, Denies painful urination <DocVeronique 12/20/19 17:48> - *Musculoskeletal Denies joint pain <DocVeronique 12/20/19 17:48> - *Neurologic Reports weakness, Denies dizziness, Denies headache(s) <Robby Roacha 12/20/19 17:48> Meds Home Medications Medication Instructions Recorded Confirmed Type aspirin 81 mg tablet,delayed 81 mg PO QDAY 06/09/17 12/20/19 History release calcium carbonate 600 mg calcium 600 mg PO BID tab 06/09/17 12/20/19 History (1,500 mg) tablet gabapentin 300 mg capsule 300 mg PO TID 06/09/17 12/20/19 History losartan 25 mg tablet 25 mg PO QDAY 06/09/17 12/20/19 History rosuvastatin 20 mg tablet 20 mg PO QDAY tab 06/09/17 12/20/19 History
[2019-12-20 18:20] LABS: Adenovirus,PCR Not Detected (NotDetected); Bordetella Pertussis Not Detected (NotDetected); Chlamydophila Pneumoniae, PCR Not Detected (NotDetected); Coronavirus 19, PCR Not Detected (NotDetected); Coronavirus 229E Not Detected (NotDetected); Coronavirus NL63 Not Detected (NotDetected); Coronavirus OC43 Not Detected (NotDetected); Coronovirus HKU1,PCR Not Detected (NotDetected); Human Metapneumovirus Not Detected (NotDetected); Influenza A, PCR Not Detected (NotDetected); Influenza AH1, 2009 Not Detected (NotDetected); Influenza AH1, PCR Not Detected (NotDetected); Influenza AH3,PCR Not Detected (NotDetected); Influenza B, PCR Not Detected (NotDetected); Mycoplasma Pneumoniae, PCR Not Detected (NotDetected); Parainfluenza 1, PCR Not Detected (NotDetected); Parainfluenza 2, PCR Not Detected (NotDetected); Parainfluenza 3, PCR Not Detected (NotDetected); Parainfluenza 4, PCR Not Detected (NotDetected); Respiratory Syncytial Virus Not Detected (NotDetected); Rhinovirus/Enterovirus Not Detected (NotDetected)
--- NOTE | 2019-12-20 18:54 | PC.NURSE ---
Pt arrived to the floor via [employer] RN's. He is alert and oriented. Dressing to right radial site is clean,dry and intact. Dopamine was running at 2.5 mcg/kg/min. VS as documented. Urinal at bedside for use. is at bedside and supportive.
--- NOTE | 2019-12-20 22:25 | PC.NURSE ---
TITRATED DOPAMINE GTT TO 5MCG, WILL CONTINUE TO MONITOR PT'S TOLERANCE.
[2019-12-21] VITALS (22 sets, daily range): BP systolic 89–126; BP diastolic 42–77; PULSE 60–89; RESP 14–20; TEMP 36.4–36.7; O2SAT 91–97
[2019-12-21 00:57] LABS: POC Glucose,Bedside 161 (70-110)
[2019-12-21 01:44] LABS: POC Glucose,Bedside 170 (70-110)
--- NOTE | 2019-12-21 02:11 | PC.NURSE ---
A&OX3. LUNGS NOTED CLEAR T/O AUSCULTATION. O2SATS >90% ON RA AND WITH 2LNC APPLIED. APPLIED 2LNC AROUND 2300 R/T PT C/O SOA. PT REPORTED I HAVE HAD THIS SOA ALL DAY. I KNOW I AM GOING TO HAVE THIS BECAUSE THE DOCTOR EVEN EXPLAINED THAT THE MEDICATION HE STARTED ME ON WAS GOING TO CAUSE SOME SOA BUT I DO NOT THINK I CAN FALL ASLEEP WITH THIS SOA FEELING. PT WAS REMINDED THAT BRILLINTA WAS THE MEDICATION THAT CAUSES SOA AND IT IS COMMON WITH ALL OF OUR PATIENTS THAT ARE STARTED ON THIS MEDICATION. PROVIDED PT WITH 2LNC TO HELP WITH COMFORT AND BEING ABLE TO FALL ASLEEP. ON REASSESSMENT, PT WAS RESTING IN BED WITH EYES CLOSED. CAP REFILL <3 SEC. PULSES +2. FIRST DEGREE HEART BLOCK AND BRADYCARDIA NOTED PER [facility] CODERS. RIGHT RADIAL CATH SITE NOTED CDI. PT TOLERATED DOPAMINE GTT WELL. AT 0127, PT RANG OUT SAYING HIS IV PUMP WAS BEEPING, RN RESPONDED TO NOTIFICATION, UPON ENTERING THE ROOM PT SKIN NOTED PALE AND CLAMMY. PT WAS FREE FROM ANY COMPLAINTS, OTHER THAN I JUST FEEL HOT. VS AT THIS TIME: BP- 122/71, HR- 75, [id number]-11, RR-18, ORAL TEMP- 98 DEGREE FAHRENHEIT, FSBS- 170, PULSES +2. PT REPORTED I DID NOT START TO FEEL THIS WAY UNTIL MY ADJUSTED THE ROOM TEMPERATURE IN HERE. OFFERED TO PROVIDE PT WITH A FAN, PT REFUSED. PT REQUESTED FOR THE ROOM AIR TEMPERATURE TO BE DECREASED, WAS ADJUSTED PER REQUEST. VSS. WILL CONTINUE TO MONITOR.
--- NOTE | 2019-12-21 04:30 | PC.NURSE ---
ONE EPISODE OF UNMEASURED EMESIS, GREEN IN COLOR.
--- NOTE | 2019-12-21 04:36 | ECG_ITS ---
APPROVED REPORT Exam: Resting ECG HR:83 bpm ECG Measurements Heart Rate 83 AXES QRSd 132 QRS -80 QT 430 T 65 QTc 505 <Conclusion> Lbbb Abnormal ECG Electronically signed by : Ashok Jama, 12/23/2019 08:30:38
[2019-12-21 04:54] LABS: Alanine Aminotransferase 26 U/L (12-78); Albumin Level 4.7 g/dl (3.5-5.0); Alkaline Phosphatase 65 U/L (38-126); Aspartate Amino Transferase 36 U/L (17-59); Basophils # 0.1 K/mm3 (0-0.2); Basophils % 0.6 % (0.1-2.0); Bilirubin,Direct 0.2 mg/dl (0.0-0.4); Bilirubin,Indirect 0.5 mg/dL (0.0-0.9); Bilirubin,Total 0.7 mg/dl (0.2-1.3); Bilirubin,Unconjugated 0.6 mg/dL (0.0-1.1); Chol/HDL Ratio 2.9 (1-3.5); Cholesterol 116 mg/dl (140-200); Eosinophils # 0.4 K/mm3 (0.0-0.4); Eosinophils % 3.2 % (0.1-12.0); HDL Cholesterol 40 mg/dl (40-60); Hematocrit 45.2 % (42.0-52.0); Hemoglobin 16.1 g/dL (14.1-18.0); Lymphocytes # 2.5 K/mm3 (0.7-4.5); Lymphocytes % 22.4 % (10-50); Mean Corpuscular HGB Conc 35.5 g/dL (31.8-35.4); Mean Corpuscular Hemoglobin 32.2 pg (27.0-31.2); Mean Corpuscular Volume 90.7 fl (80-94); Mean Platelet Volume 7.9 fl (7.4-10.4); Monocytes # 0.5 K/mm3 (0.1-1.0); Monocytes % 3.9 % (1.7-9.3); Neutrophils # 7.9 K/mm3 (1.8-7.8); Neutrophils % 69.9 % (37.0-80.0); POC Glucose,Bedside 188 (70-110); Platelet Count 163 K/mm3 (142-424); Red Blood Count 4.99 M/mm3 (4.60-6.20); Total Protein,Serum 8.2 g/dl (6.3-8.2); Triglycerides 204 mg/dl (30-150); VLDL Cholesterol 41 mg/dL (0-40); White Blood Count 11.3 K/mm3 (4.8-10.8)
[2019-12-21 04:56] LABS: Anion Gap 15.2 mEq/L (5-15); Blood Urea Nitrogen 16 mg/dl (9-20); Calcium 10.4 mg/dl (8.4-10.2); Carbon Dioxide 26 mmol/L (22.0-30.0); Chloride 102 mmol/L (98-107); Creatinine Clearance Estimated 74 mL/min (50-200); Estimated Glomerular Filt Rate 60 ml/min (>60); GFR (African American) 72 ML/MIN (>60); Glucose 211 mg/dl (74-100); Potassium 4.2 mmoL/L (3.5-5.1); Sodium 139 mmol/L (136-145)
--- NOTE | 2019-12-21 05:00 | PC.NURSE ---
187 ML OF DOPAMINE CLEARED FOR SHIFT.
[2019-12-21 05:06] LABS: Direct LDL Cholesterol 52.99 mg/dL (100-129)
--- NOTE | 2019-12-21 08:04 | P.CONPHA_ITS ---
[facility] Pharmacy VTE Monitoring - Patient Demographics Admission date: 12/20/19 Report Date: 12/21/19 Time: 08:04 Allergies/Adverse Reactions: Patient Allergies From PHENERGAN Allergy (Unknown, Uncoded 11/30/19 13:14) HALLUCINATIONS From COGENTIN Adverse Reaction (Severe, Uncoded 11/30/19 13:14) MENTAL STATUS C HANGES From COMPAZINE Adverse Reaction (Severe, Uncoded 11/30/19 13:14) MENTAL CHANGES From HALDOL Adverse Reaction (Severe, Uncoded 11/30/19 13:14) MENTAL STATUS CHANGES From VALIUM Adverse Reaction (Intermediate, Uncoded 11/30/19 13:14) HALLUCINATIONS Height: 17.68 m Weight: 94.092 kg Patient Problems: Current Active Problems Sick sinus syndrome (Acute) Sinus bradycardia (Acute) First degree AV block (Acute) Coronary artery disease (Acute) Status post coronary artery stent placement (Acute) - VTE Risk Labs: VTE Related Lab Results Hgb 16.1 g/dL (14.1-18.0) 12/21/19 04:35 Hct 45.2 % (42.0-52.0) 12/21/19 04:35 Plt Count 163 K/mm3 (142-424) 12/21/19 04:35 BUN 16 mg/dl (9-20) 12/21/19 04:35 Creatinine 1.20 mg/dl (0.66-1.25) 12/21/19 04:35 Estimated Creat Clear 74 mL/min (50-200) 12/21/19 04:35 Was VTE Risk Assessment Performed: Yes VTE Score: 3 VTE Risk Level: Low Risk Clinical Trial Participant: No - Prophylaxis VTE Prophylaxis Ordered?: Yes Types of VTE Prophylaxis: TEDS Knee High
--- NOTE | 2019-12-21 08:23 | HMH.ACPN2 ---
<Veronique Roach - Last Filed: 12/21/19 08:23> Internal Medicine - PN: Subj *Date: 12/21/19 *Time: 08:23 Interval history: Patient states he had an episode of vomiting last evening and after this he felt fine. He had no further vomiting or nausea. He denies any abdominal pain. He denies any chest pain or shortness of breath this morning. He states once they placed oxygen, his heart rate has stayed in the 70s consistently. He is scheduled for a pacemaker this morning due to sick sinus syndrome. Exam Vital signs and Labs for Last 24 Hours: Temp Pulse Resp BP Pulse Ox 97.8 F 76 18 113/64 93 L 12/21/19 04:30 12/21/19 06:00 12/21/19 04:30 12/21/19 06:00 12/21/19 06:00 Laboratory Results - last 24 hr 12/20/19 08:50: WBC 6.7, RBC 4.75, Hgb 15.1, Hct 43.9, MCV 92.5, MCH 31.7 H, MCHC 34.3, RDW 14.0, Plt Count 144, MPV 7.8, Neut % (Auto) 47.2, Lymph % (Auto) 40.9, Hardeman % (Auto) 4.0, Eos % (Auto) 7.1, Baso % (Auto) 0.8, Neut # (Auto) 3.2, Lymph # (Auto) 2.7, Hardeman # (Auto) 0.3, Eos # (Auto) 0.5 H, Baso # (Auto) 0.1 12/20/19 08:50: Sodium 143, Potassium 4.3, Chloride 107, Carbon Dioxide 27, Anion Gap 13.3, BUN 18, Creatinine 1.30 H, Estimated Creat Clear 69, Estimated GFR 54 L, Est GFR ( Amer) 66, Glucose 119 H, Calcium 10.1 12/20/19 11:21: Activated Clotting Time 297 H* 12/20/19 18:00: Chlamy pneumoniae PCR Not detected, Adenovirus (PCR) Not detected, B. pertussis DNA (PCR) Not detected, Coronavirus OC43 (PCR) Not detected, Coronavirus HKU1 (PCR) Not detected, Coronavirus 229E (PCR) Not detected, COVID-19 PCR Not detected, Coronavirus NL63 (PCR) Not detected, Human Metapneumovir PCR Not detected, Influenza A (H1) PCR Not detected, Influ A (H1N1/09) PCR Not detected, Influenza A (H3) PCR Not detected, Influenza Type A (PCR) Not detected, Influenza Type B (PCR) Not detected, M. pneumoniae (PCR) Not detected, Parainfluenza 1 (PCR) Not detected, Parainfluenza 2 (PCR) Not detected, Parainfluenza 3 (PCR) Not detected, Parainfluenza 4 (PCR) Not detected, RSV (PCR) Not detected, Entero/Rhino (PCR) Not detected 12/20/19 20:57: POC Glucose 161 H 12/21/19 01:33: POC Glucose 170 H 12/21/19 04:35: WBC 11.3 H D, RBC 4.99, Hgb 16.1, Hct 45.2, MCV 90.7, MCH 32.2 H, MCHC 35.5 H, RDW 14.0, Plt Count 163, MPV 7.9, Neut % (Auto) 69.9, Lymph % (Auto) 22.4, Hardeman % (Auto) 3.9, Eos % (Auto) 3.2, Baso % (Auto) 0.6, Neut # (Auto) 7.9 H, Lymph # (Auto) 2.5, Hardeman # (Auto) 0.5, Eos # (Auto) 0.4, Baso # (Auto) 0.1 12/21/19 04:35: Sodium 139, Potassium 4.2, Chloride 102, Carbon Dioxide 26, Anion Gap 15.2 H, BUN 16, Creatinine 1.20, Estimated Creat Clear 74, Estimated GFR 60, Est GFR ( Amer) 72, Glucose 211 H D, Calcium 10.4 H 12/21/19 04:35: Total Bilirubin 0.7, Direct Bilirubin 0.2, Conjugated Bilirubin 0.0, Indirect Bilirubin 0.5, Unconjugated Bilirubin 0.6, AST 36, ALT 26, Alkaline Phosphatase 65, Total Protein 8.2, Albumin 4.7, Triglycerides 204 H, Cholesterol 116 L, LDL Cholesterol Direct 52.99 L, VLDL Cholesterol 41 H, HDL Cholesterol 40, Cholesterol/HDL Ratio 2.9 12/21/19 04:35: POC Glucose 188 H I & O for Last 24 hours: Intake & Output 12/18/19 12/19/19 12/20/19 12/21/19 11:59 11:59 11:59 11:59 Intake Total 511 / 511 Output Total 600 / 600 Balance - / - Weight 209 lb 207 lb 7 oz - Constitutional no acute distress - *Routine Respiratory Exam Present: CTA bilaterally - *Routine Cardiovascular Exam Present: RRR - *Routine Abdominal Exam Present: soft, normoactive bowel sounds. Absent: tenderness - *Routine Extremities Exam Absent: cyanosis, clubbing, edema - *Routine Skin Exam Present: warm. Absent: rash - *Routine Neurological Exam Present: alert, oriented X3 Assessment and Plan (1) Sick sinus syndrome Current visit: Yes Status: Acute Category: Medical Code(s): I49.5 - Sick sinus syndrome (2) Sinus bradycardia Current visit: Yes Status: Acute Category: Medical Code(s): R00.1 - Bradycar
--- NOTE | 2019-12-21 09:00 | IR_ITS ---
APPROVED REPORT Patient Location: Inpatient Patient Financial Services Coordinator: MARLEN Woods RT (R) PROCEDURES 1. Pocket formation for Permanent Pacemaker Placement. 2. Placement of an atrial sensing and pacing coil into the right atrial appendage. 3. Placement of a ventricular sensing and pacing coil in the right ventricular apex. 4. Permanent Pacemaker Placement. INDICATION Symptomatic Bradycardia, 2nd Degree Heart Block Mobitz II, 3Rd Degree Heart Block Informed consent was obtained prior to the procedure. COMPLICATIONS None Estimated Blood Loss: less than 10ml TECHNIQUE 1% Lidocaine with epinephrine used to anesthetized the left anterior aspect of the chest. Scalpel was used to make the initial cutaneous incision while electrocautery was used to dissect down tinto the fascia. The fascia was lifted off the pectoralis muscle and digitally manipulated creating a pocket for the pacemaker. The patient was then placed in Trendelenburg position and the subclavian vein was accessed twice via the Selinger technique, there are two wires in the vein. A 6 Telugu sheath was placed under fluoroscopic guidance into the subclavian vein over one of the wires while keeping the other wire in place within the subclavian vein. The dilator was removed from the sheath. Using fluoroscopic guidance, the ventricular lead was placed into the right ventricular apex, screwed and secured into place. Electronic interrogation proved acceptable thresholds and voltage within the lead. Using 3-0 silk, the ventricular lead was then secured into place. Lead was secured to the facia using the 3-0 silk. Following this, the sheath was pealed away. An additional 6 Telugu fresh sheath and dilator was placed over the existing wire. Using fluoroscopic guidance, the atrial lead was the placed into the right atrial appendage and screwed and secured in place. Electrical interrogation demonstrated acceptable thresholds and voltage number. The atrial lead was then secured into place using 3-0 silk. 1 gram of Ancef was used to flush the pocket. Following the pacemaker generator being secured to the fascia and in place, Monocryl was used to close the subcutaneous layers while sade were used to close the cutaneous layer. A pressure dressing was placed and the patient was transferred to the postop holding area in stable condition for postoperative care. INTERROGATION Generator Model number: [employer] GREG NOYOLA IS-1 L311 Generator Serial number: [id number] Atrial lead model number: Jean GARZA IS-1 Bi Positive Fix RA/RV 52 cm 7741 Atrial lead serial number: [id number] P-wave: 6.0 mv Impedence: 650 Ohms Threshold: 1.0V@0.4ms Right Ventricular lead model number: Jean GARZA IS-1 Bi Positive Fix RA/RV 59 cm 7742 Right Ventricular lead serial number: [id number] R-wave: 10.0 mV Impedence: 1200 Ohms Threshold: 1.0V@0.4ms Pacing Parameters: Mode: DDDR Base/Max Track: 60ppm/130ppm No diaphragmatic stimulation at 10 volts. IMPRESSION 1. Successful Pocket formation for Permanent Pacemaker Placement. 2. Successful Placement of an atrial sensing and pacing coil into the right atrial appendage. 3. Successful Placement of a ventricular sensing and pacing coil in the right ventricular apex. 4. Successful Permanent Pacemaker Placement. PLAN 1. Post Op Wound Care. Electronically signed by : Luis Miguel Rivera, 12/27/2019 08:49:10
--- NOTE | 2019-12-21 09:48 | HMH.PNCARD ---
Subjective Date: 12/21/19 Time: 09:49 Principal diagnosis: SSS Interval history: 74-year-old white male in bed in no acute distress. Some shortness of breath noted overnight that resolved with application of oxygen by nasal cannula. Reportedly did not have a drop in his heart rate during that time. He continues on dopamine therapy with heart rate in the 50-70 range at this time. He is planning to go for pacemaker today. Telemetry continues to show periods of wenckebach as well as high degree AV block as well. Exam Vital signs and Labs for Last 24 Hours: Temp Pulse Resp BP Pulse Ox 97.8 F 70 18 113/64 93 L 12/21/19 04:30 12/21/19 08:00 12/21/19 08:00 12/21/19 06:00 12/21/19 08:00 Laboratory Results - last 24 hr 12/20/19 11:21: Activated Clotting Time 297 H* 12/20/19 18:00: Chlamy pneumoniae PCR Not detected, Adenovirus (PCR) Not detected, B. pertussis DNA (PCR) Not detected, Coronavirus OC43 (PCR) Not detected, Coronavirus HKU1 (PCR) Not detected, Coronavirus 229E (PCR) Not detected, COVID-19 PCR Not detected, Coronavirus NL63 (PCR) Not detected, Human Metapneumovir PCR Not detected, Influenza A (H1) PCR Not detected, Influ A (H1N1/09) PCR Not detected, Influenza A (H3) PCR Not detected, Influenza Type A (PCR) Not detected, Influenza Type B (PCR) Not detected, M. pneumoniae (PCR) Not detected, Parainfluenza 1 (PCR) Not detected, Parainfluenza 2 (PCR) Not detected, Parainfluenza 3 (PCR) Not detected, Parainfluenza 4 (PCR) Not detected, RSV (PCR) Not detected, Entero/Rhino (PCR) Not detected 12/20/19 20:57: POC Glucose 161 H 12/21/19 01:33: POC Glucose 170 H 12/21/19 04:35: WBC 11.3 H D, RBC 4.99, Hgb 16.1, Hct 45.2, MCV 90.7, MCH 32.2 H, MCHC 35.5 H, RDW 14.0, Plt Count 163, MPV 7.9, Neut % (Auto) 69.9, Lymph % (Auto) 22.4, Mora % (Auto) 3.9, Eos % (Auto) 3.2, Baso % (Auto) 0.6, Neut # (Auto) 7.9 H, Lymph # (Auto) 2.5, Mora # (Auto) 0.5, Eos # (Auto) 0.4, Baso # (Auto) 0.1 12/21/19 04:35: Sodium 139, Potassium 4.2, Chloride 102, Carbon Dioxide 26, Anion Gap 15.2 H, BUN 16, Creatinine 1.20, Estimated Creat Clear 74, Estimated GFR 60, Est GFR ( Amer) 72, Glucose 211 H D, Calcium 10.4 H 12/21/19 04:35: Total Bilirubin 0.7, Direct Bilirubin 0.2, Conjugated Bilirubin 0.0, Indirect Bilirubin 0.5, Unconjugated Bilirubin 0.6, AST 36, ALT 26, Alkaline Phosphatase 65, Total Protein 8.2, Albumin 4.7, Triglycerides 204 H, Cholesterol 116 L, LDL Cholesterol Direct 52.99 L, VLDL Cholesterol 41 H, HDL Cholesterol 40, Cholesterol/HDL Ratio 2.9 12/21/19 04:35: POC Glucose 188 H I & O for Last 24 hours: Intake & Output 12/18/19 12/19/19 12/20/19 12/21/19 11:59 11:59 11:59 11:59 Intake Total 698 / 698 Output Total 2200 / 2200 Balance -1502 / -1502 Weight 209 lb 207 lb 7 oz - *Routine HEENT Exam Head: Present: normocephalic Eye: Present: EOMI, PERRL ENT: Present: mucous membranes moist - *Routine Respiratory Exam Present: CTA bilaterally. Absent: accessory muscle use, rales, rhonchi, wheezes - *Routine Cardiovascular Exam Present: RRR. Absent: murmur, gallop, rubs - *Routine Abdominal Exam Present: soft. Absent: tenderness, distended, guarding - *Routine Extremities Exam Absent: edema, calf tenderness - *Routine Neurological Exam Present: alert, oriented X3, moving all extremities Progress Note: A&P (1) Sick sinus syndrome Status: Acute Current Visit: Yes (2) Sinus bradycardia Status: Acute Current Visit: Yes (3) First degree AV block Status: Acute Current Visit: Yes (4) Coronary artery disease Status: Acute Current Visit: Yes (5) Status post coronary artery stent placement Status: Acute Current Visit: Yes (6) HLD (hyperlipidemia) Status: Chronic Current Visit: No (7) HTN (hypertension) Status: Chronic Current Visit: No (8) Diabetes mellitus Status: Chronic Current Visit: No Assessment and Plan for All Diagnoses:: 1. Sick sinus syndrome
[2019-12-21 10:52] LABS: POC Glucose,Bedside 194 (70-110)
--- NOTE | 2019-12-21 10:56 | PC.NURSE ---
Off floor for procedure
--- NOTE | 2019-12-21 11:36 | HMH.PHAINT ---
home medication reconciliation completed using [facility], cardiology office and pt interview
--- NOTE | 2019-12-21 12:41 | XR_ITS ---
PROCEDURE: XR CHEST PORTABLE CLINICAL HISTORY: Confirm pacemaker/AID placement COMPARISON: CR CXR CHEST(2 VIEWS-NOT PORTABLE) from 11/26/2014 CR CXR2V XR chest 2V from 01/23/2018 CR CXR2 XR chest AP from 09/29/2018 FINDINGS: There has been interval insertion of a bipolar pacemaker from left subclavian approach. The leads are in good position. No obvious pneumothorax. There is diffuse expansion and sclerosis the left 1st and 2nd rib as before The right lung is clear. IMPRESSION: Interval pacemaker insertion with good position No change in the expansile lesion of the left 1st and 2nd rib Dictated b Vineet Maynard MD 12/21/2019 13:59 Vineet Maynard MD in [place] 12/21/2019 13:59
--- NOTE | 2019-12-21 12:45 | PC.NURSE ---
Pt back to the floor from procedure. Report received from Ana Umana RN. Pt s/p placement of dual chamber pacemaker. Dressing to left chest is clean, dry, and intact. Pt is drowsy but easily aroused and answers questions appropriately. is at bedside. V/S as documented.
--- NOTE | 2019-12-21 13:43 | HMH.ANESCL ---
[facility] Anesthesia Checklist - Patient Identification Patient Identification: Arm Band, Verbal (Name & ) - Structural Data Admitted From: Home Planned Operative Procedure/s: Placement of permanent pacemaker Consent for Planned Operative Procedure(s) Verified: Yes Verified Documents: Surgical Consent, History and Physical - NPO Status Verified Time NPO: 00:00 - Chart Verification Results Verified: CBC, BMP, PT, PTT, INR, ECG - Additional verifications Anesthesia Reactions: No - Airway Assessment C-Spine Mobility Assessed: Yes TMJ Mobility Assessed: Yes Dentition: Good Dentition - Neurological Assessment Level of Consciousness: Awake, Alert, Appropriate, Follows Commands Hx Seizures: No Numbness or tingling in extremities: No - Anesthesia Plan Anesthesia Risk discussed: Yes Anesthesia Plan: Verified ASA Class: IV Anesthesia Type: MAC [facility] History I have reviewed the patient's past medical history: Yes Medical History: Reports:: Anxiety, Cancer (multiple myeloma), Congenital Heart Disease, Diabetes Mellitus Type 2, Hyperlipidemia, Hypertension, Kidney Stones Denies:: Diabetes Mellitus Type 1, Internal Pacemaker, MRSA, Seizures *Have you ever received a pneumonia vaccine?: Yes *Have you received a flu vaccine this season?: Yes Other Medical History: Reports: Cataracts, Chemotherapy, Hypothyroidism, Radiation Therapy Comment:: morbid obesity Anesthesia experience/problems:: No prior complications Other Surgeries: Yes: Other. No: Pacemaker Amputation: No Fractures: Yes - *Social History Last grade of school completed: 11th or 12th Smoking Status: Never smoker Alcohol Intake: never Substance Use Type: denies use *Occupational Status:: retired Housing: house Household Members: spouse *Travel in the last 8 weeks: None - Psychiatric History Pschychiatric History:: Reports:: Anxiety Family Hx:: Cancer, Diabetes, Hyperlipidemia, Hypertension
[2019-12-21 16:26] LABS: POC Glucose,Bedside 175 (70-110)
--- NOTE | 2019-12-23 08:41 | HMH.DCSUM ---
General - General Admission date:: 12/20/19 Discharge date: 12/21/19 HPI HPI: Mr. Ng is a 74-year-old gentleman who came into the hospital today to undergo outpatient left cardiac catheterization. The patient underwent stenting to his proximal LAD with persistent moderate stenosis in the mid LAD. The patient will be on dual antiplatelet therapy. Following left cardiac catheterization the patient got significantly bradycardic with a heart rate down in the 30s. He has been started on a dopamine drip. The patient has been admitted to the hospital secondary to his sick sinus syndrome. The patient is scheduled to undergo pacemaker placement tomorrow. He denies any chest pain or pressure. He denies any shortness of breath or edema. He denies any fever, chills, nausea, vomiting, diarrhea, PND or orthopnea. Fatigue has been noted by the patient. (the above as per Shahana Gil) Hospital Course Hospital Course: The patient was admitted overnight for telemetry monitoring and a pacemaker placement was planned for the next day. The patient did have one episode of vomiting overnight but stated after this episode, he felt fine. He denied any chest pain or shortness of breath. Oxygen was placed as his sats decreased slightly. His heart rate stayed in the 50-70 range on the dopamine therapy. Telemetry continued to show periods of Wenckebach as well as high degree AV block. The patient was taken for pacemaker insertion. He tolerated the procedure well and had a chest x-ray after the procedure showing the pacemaker in good position. The patient was stable to be discharged home and will follow up with Dr. Rivera in his office. Objective Vital signs: Temp Pulse Resp BP Pulse Ox 97.6 F 66 16 107/60 L 94 L 12/21/19 14:15 12/21/19 18:00 12/21/19 18:00 12/21/19 18:00 12/21/19 18:00 Narrative: - Constitutional no acute distress - *Routine HEENT Exam Head: Present: normocephalic Eye: Present: EOMI, PERRL ENT: Present: mucous membranes moist - *Routine Neck Exam Present: supple. Absent: lymphadenopathy - *Routine Respiratory Exam Present: CTA bilaterally - *Routine Cardiovascular Exam Present: bradycardia - *Routine Abdominal Exam Present: soft, normoactive bowel sounds. Absent: tenderness - *Routine Extremities Exam Absent: cyanosis, clubbing, edema - *Routine Skin Exam Present: warm. Absent: rash - *Routine Neurological Exam Present: alert, oriented X3 DS: Diagnosis - Discharge Diagnosis (1) Sick sinus syndrome Status: Acute (2) Sinus bradycardia Status: Acute (3) First degree AV block Status: Acute (4) Coronary artery disease Status: Acute (5) Status post coronary artery stent placement Status: Acute (6) HLD (hyperlipidemia) Status: Chronic (7) HTN (hypertension) Status: Chronic (8) Diabetes mellitus Status: Chronic Discharge Plan - Patient Discharge Instructions ACTIVITY: Continue current activity, Limited activity DIET: low fat, low cholesterol Patient Instructions: Heart-Healthy Diet, DI for Sick Sinus Syndrome, DI for Cardiac Catheterization, DI for Pacemaker Insertion, MP3 (iPod) Headphones Near ICD or Pacemaker May Cause Problems, DI for Surgical Site Infection - Follow up Plan Follow up with: Luis Miguel Rivera MD [Staff Physician] - 12/27/19 Disposition: Home, Self-Long Term Medications: Home Medications Medication Instructions Recorded Confirmed Type aspirin 81 mg tablet,delayed 81 mg PO DAILY 06/09/17 12/21/19 History release calcium carbonate 600 mg calcium 600 mg PO BID tab 06/09/17 12/20/19 History (1,500 mg) tablet gabapentin 300 mg capsule 300 mg PO TID 06/09/17 12/20/19 History losartan 25 mg tablet 25 mg PO DAILY 06/09/17 12/21/19 History rosuvastatin 20 mg tablet 20 mg PO DAILY tab 06/09/17 12/21/19 History fenofibrate 54 mg tablet 54 mg PO BID tab 07/11/1912/20
== END 2019-12-21 19:20 | disposition home or self-care (01) | DRG 243 ==
LOC: 2ND 17:02
PROVIDERS: Internal Medicine; Nurse Practitioner Family; Admitting Provider Family Medicine; PCP Nurse Practitioner Family; Visit Provider Family Medicine
PROC: 027034Z Dilation of Coronary Artery, One Artery with Drug-eluting Intraluminal Device, Percutaneous Approach (ICD-10-PCS; principal; 2019-12-20 09:00)
PROC: 0JH606Z Insertion of Pacemaker, Dual Chamber into Chest Subcutaneous Tissue and Fascia, Open Approach (ICD-10-PCS; principal; 2019-12-21 13:45)
DX: I44.2 Atrioventricular block, complete (principal); I25.118 Atherosclerotic heart disease of native coronary artery with other forms of angina pectoris; E78.5 Hyperlipidemia, unspecified; I10 Essential (primary) hypertension; C90.01 Multiple myeloma in remission; R06.02 Shortness of breath; R94.39 Abnormal result of other cardiovascular function study; I49.5 Sick sinus syndrome; Z79.4 Long term (current) use of insulin; Z79.82 Long term (current) use of aspirin; Z88.5 Allergy status to narcotic agent; E03.9 Hypothyroidism, unspecified; I44.1 Atrioventricular block, second degree; E11.9 Type 2 diabetes mellitus without complications
CPT/HCPCS: 33208; 36415; 71045; 80048; 80061; 80076; 82962; 85025; 85347; 87581; 87633; 87798; 92928; 93005; 93458; 99152; C1725; C1760; C1769; C1785; C1876; C1898; C9600; J1644; J2405; J2704; Q9967

== ENCOUNTER → 2019-12-27 07:22 | Outpatient (CLI) | payer MEDICARE, SELFPAY ==
[2019-12-27 07:43] LABS: Hematocrit 42.3 % (42.0-52.0); Hemoglobin 14.4 g/dL (14.1-18.0)
[2019-12-27 08:30] LABS: Blood Urea Nitrogen 23 mg/dl (9-20); Estimated Glomerular Filt Rate 50 ml/min (>60); GFR (African American) 60 ML/MIN (>60)
== END ==
PROVIDERS: Visit Provider Internal Medicine
DX: Z95.5 Presence of coronary angioplasty implant and graft (principal); E78.5 Hyperlipidemia, unspecified
CPT/HCPCS: 36415; 82565; 84520; 85014; 85018

== ENCOUNTER → 2020-03-21 07:44 | Outpatient (CLI) | payer MEDICARE, SELFPAY ==
[2020-03-21 08:16] LABS: Basophils # 0.1 K/mm3 (0-0.2); Eosinophils # 0.3 K/mm3 (0.0-0.4); Eosinophils % 5.1 % (0.1-12.0); Hematocrit 42.3 % (42.0-52.0); Hemoglobin 13.3 g/dL (14.1-18.0); Lymphocytes # 2.2 K/mm3 (0.7-4.5); Lymphocytes % 34.2 % (10-50); Mean Corpuscular HGB Conc 31.6 g/dL (31.8-35.4); Mean Corpuscular Hemoglobin 30.2 pg (27.0-31.2); Mean Corpuscular Volume 95.8 fl (80-94); Mean Platelet Volume 7.5 fl (7.4-10.4); Monocytes # 0.3 K/mm3 (0.1-1.0); Monocytes % 5.2 % (1.7-9.3); Neutrophils # 3.6 K/mm3 (1.8-7.8); Neutrophils % 54.5 % (37.0-80.0); Platelet Count 145 K/mm3 (142-424); Red Blood Count 4.41 M/mm3 (4.60-6.20); Red Cell Distribution Width 13.8 % (11.5-17.5); White Blood Count 6.5 K/mm3 (4.8-10.8)
[2020-03-21 10:42] LABS: Chloride 104 mmol/L (98-107); Potassium 4.2 mmoL/L (3.5-5.1); Sodium 141 mmol/L (136-145)
[2020-03-21 10:44] LABS: Alanine Aminotransferase 22 U/L (12-78); Aspartate Amino Transferase 31 U/L (17-59); Blood Urea Nitrogen 18 mg/dl (9-20); Estimated Glomerular Filt Rate 50 ml/min (>60); GFR (African American) 60 ML/MIN (>60)
[2020-03-21 10:45] LABS: Albumin Level 4.4 g/dl (3.5-5.0); Albumin/Globulin Ratio 1.6 (1.1-1.8); Alkaline Phosphatase 66 U/L (38-126); Anion Gap 15.2 mEq/L (5-15); Bilirubin,Total 0.5 mg/dl (0.2-1.3); Carbon Dioxide 26 mmol/L (22.0-30.0); Globulin 2.7 g/dL (1.3-3.2); Glucose 179 mg/dl (74-100); Total Protein,Serum 7.1 g/dl (6.3-8.2)
[2020-03-22 15:10] LABS: Immunoglobulin A, Qn 159 mg/dL (61-437); Immunoglobulin G, Qn 1044 mg/dL (603-1613)
[2020-03-22 15:21] LABS: Immunoglobulin M, Qn 136 mg/dL (15-143)
[2020-03-22 16:51] LABS: Alpha-1-Globulin 0.2 g/dL (0.0-0.4); Alpha-2-Globulin 0.8 g/dL (0.4-1.0); Free Kappa Lt Chains 25.2 mg/L (3.3-19.4); Free Lambda Lt Chains 21.1 mg/L (5.7-26.3)
== END ==
PROVIDERS: Visit Provider Internal Medicine Medical Oncology
DX: C90.02 Multiple myeloma in relapse (principal)
CPT/HCPCS: 36415; 80053; 82784; 83883; 84155; 84165; 85025; 86334

== ENCOUNTER → 2020-07-02 08:16 | Outpatient (CLI) | payer MEDICARE, SELFPAY ==
[2020-07-02 09:01] LABS: Basophils # 0.1 K/mm3 (0-0.2); Eosinophils # 0.5 K/mm3 (0.0-0.4); Eosinophils % 6.5 % (0.1-12.0); Lymphocytes # 2.7 K/mm3 (0.7-4.5); Lymphocytes % 36.6 % (10-50); Mean Corpuscular HGB Conc 32.6 g/dL (31.8-35.4); Mean Corpuscular Hemoglobin 30.2 pg (27.0-31.2); Mean Corpuscular Volume 92.5 fl (80-94); Mean Platelet Volume 8.1 fl (7.4-10.4); Monocytes # 0.3 K/mm3 (0.1-1.0); Monocytes % 3.7 % (1.7-9.3); Neutrophils # 3.8 K/mm3 (1.8-7.8); Neutrophils % 52.2 % (37.0-80.0); Platelet Count 142 K/mm3 (142-424); Red Blood Count 4.64 M/mm3 (4.60-6.20); Red Cell Distribution Width 14.1 % (11.5-17.5); White Blood Count 7.4 K/mm3 (4.8-10.8)
[2020-07-02 09:31] LABS: Hemoglobin A1C 7.1 % (4.0-6.0)
[2020-07-02 09:57] LABS: Chloride 105 mmol/L (98-107); Sodium 141 mmol/L (136-145)
[2020-07-02 09:58] LABS: Potassium 4.5 mmoL/L (3.5-5.1)
[2020-07-02 10:00] LABS: Alanine Aminotransferase 26 U/L (12-78); Albumin Level 4.5 g/dl (3.5-5.0); Albumin/Globulin Ratio 1.6 (1.1-1.8); Alkaline Phosphatase 61 U/L (38-126); Anion Gap 11.5 mEq/L (5-15); Aspartate Amino Transferase 31 U/L (17-59); Bilirubin,Total 0.5 mg/dl (0.2-1.3); Blood Urea Nitrogen 23 mg/dl (9-20); Carbon Dioxide 29 mmol/L (22.0-30.0); Estimated Glomerular Filt Rate 50 ml/min (>60); GFR (African American) 60 ML/MIN (>60); Globulin 2.9 g/dL (1.3-3.2); Total Protein,Serum 7.4 g/dl (6.3-8.2)
[2020-07-02 10:01] LABS: Calcium 10.2 mg/dl (8.4-10.2); Glucose 157 mg/dl (74-100)
[2020-07-02 10:17] LABS: Triiodothryronine (T3) Uptake 33 % (23.5-40.5)
[2020-07-02 10:18] LABS: Free Thyroxine Index 2.3 ug/dL (5.93-13.13)
[2020-07-02 10:32] LABS: Thyroid Stimulating Hormone 5.01 uIU/mL (0.465-4.68)
[2020-07-02 10:43] LABS: Chol/HDL Ratio 3.2 (1-3.5); Cholesterol 104 mg/dl (140-200); HDL Cholesterol 33 mg/dl (40-60); Triglycerides 144 mg/dl (30-150); VLDL Cholesterol 29 mg/dL (0-40)
[2020-07-02 10:54] LABS: Direct LDL Cholesterol 44.38 mg/dL (100-129)
[2020-07-02 13:39] LABS: Vitamin B12 570 pg/mL (239-931)
[2020-07-03 15:38] LABS: Albumin 3.9 g/dL (2.9-4.4); Alpha-1-Globulin 0.2 g/dL (0.0-0.4); Alpha-2-Globulin 0.8 g/dL (0.4-1.0); Gamma Globulin 1.2 g/dL (0.4-1.8); Protein, Total 7.2 g/dL (6.0-8.5)
[2020-07-20 22:03] LABS: Free Lambda Lt Chains 19.3 mg/dL
== END ==
PROVIDERS: PCP Nurse Practitioner Family; Visit Provider Internal Medicine Medical Oncology
DX: E11.8 Type 2 diabetes mellitus with unspecified complications (principal); E03.9 Hypothyroidism, unspecified; E78.5 Hyperlipidemia, unspecified; E53.8 Deficiency of other specified B group vitamins; I10 Essential (primary) hypertension; C90.00 Multiple myeloma not having achieved remission
CPT/HCPCS: 36415; 80053; 80061; 82607; 82746; 82784; 83036; 83883; 84155; 84165; 84436; 84443; 84479; 85025; 86334

== ENCOUNTER → 2020-09-04 10:00 | Outpatient (CLI) | payer MEDICARE, SELFPAY ==
[2020-09-04 14:00] LABS: Chloride 105 mmol/L (98-107); Sodium 138 mmol/L (136-145)
[2020-09-04 14:01] LABS: Potassium 4.4 mmoL/L (3.5-5.1)
[2020-09-04 14:04] LABS: Anion Gap 12.4 mEq/L (5-15); Calcium 9.7 mg/dl (8.4-10.2); Carbon Dioxide 25 mmol/L (22.0-30.0); Glucose 158 mg/dl (74-100)
[2020-09-04 14:09] LABS: Blood Urea Nitrogen 22 mg/dl (9-20)
[2020-09-04 15:45] LABS: Estimated Glomerular Filt Rate 50 ml/min (>60); GFR (African American) 60 ML/MIN (>60)
[2020-09-04 18:35] LABS: Free Thyroxine Index 2.1 ug/dL (5.93-13.13); T4 (Thyroxine) 6.3 ug/dl (5.53-11.0); Triiodothryronine (T3) Uptake 33 % (23.5-40.5)
[2020-09-04 18:49] LABS: Thyroid Stimulating Hormone 3.17 uIU/mL (0.465-4.68)
== END ==
PROVIDERS: Visit Provider Nurse Practitioner Family
DX: E11.8 Type 2 diabetes mellitus with unspecified complications (principal); E03.9 Hypothyroidism, unspecified; N18.9 Chronic kidney disease, unspecified; Z79.4 Long term (current) use of insulin
CPT/HCPCS: 36415; 80048; 82043; 84436; 84443; 84479

== ENCOUNTER → 2020-09-16 08:33 | Outpatient (CLI) | payer MEDICARE, SELFPAY ==
[2020-09-16 08:58] LABS: Basophils % 0.5 % (0.1-2.0); Eosinophils # 0.5 K/mm3 (0.0-0.4); Eosinophils % 5.5 % (0.1-12.0); Hematocrit 40.2 % (42.0-52.0); Hemoglobin 13.5 g/dL (14.1-18.0); Lymphocytes # 2.9 K/mm3 (0.7-4.5); Lymphocytes % 35.7 % (10-50); Mean Corpuscular HGB Conc 33.5 g/dL (31.8-35.4); Mean Corpuscular Hemoglobin 30.7 pg (27.0-31.2); Mean Corpuscular Volume 91.5 fl (80-94); Mean Platelet Volume 8.8 fl (7.4-10.4); Monocytes # 0.4 K/mm3 (0.1-1.0); Monocytes % 4.2 % (1.7-9.3); Neutrophils # 4.5 K/mm3 (1.8-7.8); Neutrophils % 54.1 % (37.0-80.0); Platelet Count 139 K/mm3 (142-424); White Blood Count 8.2 K/mm3 (4.8-10.8)
[2020-09-16 09:27] LABS: Chloride 105 mmol/L (98-107); Sodium 141 mmol/L (136-145)
[2020-09-16 09:28] LABS: Potassium 4.6 mmoL/L (3.5-5.1)
[2020-09-16 09:30] LABS: Alanine Aminotransferase 25 U/L (12-78); Alkaline Phosphatase 66 U/L (38-126); Anion Gap 12.6 mEq/L (5-15); Aspartate Amino Transferase 32 U/L (17-59); Bilirubin,Total 0.4 mg/dl (0.2-1.3); Blood Urea Nitrogen 21 mg/dl (9-20); Carbon Dioxide 28 mmol/L (22.0-30.0); Estimated Glomerular Filt Rate 54 ml/min (>60); GFR (African American) 65 ML/MIN (>60)
[2020-09-16 09:31] LABS: Albumin Level 4.3 g/dl (3.5-5.0); Albumin/Globulin Ratio 1.5 (1.1-1.8); Calcium 9.9 mg/dl (8.4-10.2); Globulin 2.8 g/dL (1.3-3.2); Glucose 147 mg/dl (74-100); Total Protein,Serum 7.1 g/dl (6.3-8.2)
[2020-09-17 15:33] LABS: Albumin 3.7 g/dL (2.9-4.4); Alpha-1-Globulin 0.2 g/dL (0.0-0.4); Alpha-2-Globulin 0.8 g/dL (0.4-1.0); Gamma Globulin 1.1 g/dL (0.4-1.8); Protein, Total 6.9 g/dL (6.0-8.5)
[2020-09-17 18:09] LABS: Immunoglobulin A, Qn 180 mg/dL (61-437); Immunoglobulin G, Qn 1078 mg/dL (603-1613)
[2020-09-19 12:44] LABS: Immunoglobulin M, Qn 117 mg/dL (15-143)
[2020-09-23 23:19] LABS: Free Kappa Lt Chains 23.8; Free Lambda Lt Chains 18.9
== END ==
PROVIDERS: Visit Provider Internal Medicine Medical Oncology
DX: C90.02 Multiple myeloma in relapse (principal)
CPT/HCPCS: 36415; 80053; 82784; 83883; 84155; 84165; 85025; 86334

== ENCOUNTER → 2020-09-24 08:53 | Outpatient (POV) | payer MEDICARE, SELFPAY | PROVIDERS: Visit Provider Dermatology | DX: Z00.00 Encounter for general adult medical examination without abnormal findings (principal) ==

== ENCOUNTER → 2021-01-06 09:28 | Outpatient (CLI) | payer MEDICARE, SELFPAY ==
[2021-01-06 10:23] LABS: Chloride 106 mmol/L (98-107); Sodium 144 mmol/L (136-145)
[2021-01-06 10:24] LABS: Potassium 5.1 mmoL/L (3.5-5.1)
[2021-01-06 10:25] LABS: Basophils % 0.6 % (0.1-2.0); Eosinophils # 0.4 K/mm3 (0.0-0.4); Eosinophils % 6.7 % (0.1-12.0); Hemoglobin 13.6 g/dL (14.1-18.0); Lymphocytes # 2.3 K/mm3 (0.7-4.5); Mean Corpuscular HGB Conc 33.1 g/dL (31.8-35.4); Mean Corpuscular Hemoglobin 31.1 pg (27.0-31.2); Mean Corpuscular Volume 93.9 fl (80-94); Mean Platelet Volume 8.8 fl (7.4-10.4); Monocytes # 0.3 K/mm3 (0.1-1.0); Monocytes % 4.3 % (1.7-9.3); Neutrophils # 3.5 K/mm3 (1.8-7.8); Neutrophils % 53.4 % (37.0-80.0); Platelet Count 176 K/mm3 (142-424); Red Blood Count 4.37 M/mm3 (4.60-6.20); Red Cell Distribution Width 14.2 % (11.5-17.5); White Blood Count 6.6 K/mm3 (4.8-10.8)
[2021-01-06 10:26] LABS: Alanine Aminotransferase 23 U/L (12-78); Alkaline Phosphatase 62 U/L (38-126); Anion Gap 14.1 mEq/L (5-15); Aspartate Amino Transferase 35 U/L (17-59); Bilirubin,Total 0.5 mg/dl (0.2-1.3); Blood Urea Nitrogen 21 mg/dl (9-20); Carbon Dioxide 29 mmol/L (22.0-30.0); Estimated Glomerular Filt Rate 46 ml/min (>60); GFR (African American) 56 ML/MIN (>60)
[2021-01-06 10:27] LABS: Albumin/Globulin Ratio 1.4 (1.1-1.8); Calcium 9.6 mg/dl (8.4-10.2); Globulin 2.8 g/dL (1.3-3.2); Glucose 154 mg/dl (74-100); Total Protein,Serum 6.8 g/dl (6.3-8.2)
[2021-01-07 14:41] LABS: Albumin 3.6 g/dL (2.9-4.4); Alpha-1-Globulin 0.3 g/dL (0.0-0.4); Alpha-2-Globulin 0.8 g/dL (0.4-1.0); Gamma Globulin 1.2 g/dL (0.4-1.8); Immunoglobulin A, Qn 171 mg/dL (61-437); Immunoglobulin G, Qn 1044 mg/dL (603-1613); Immunoglobulin M, Qn 141 mg/dL (15-143)
[2021-01-14 14:00] LABS: Free Kappa Lt Chains 29.8; Free Lambda Lt Chains 16.7
== END ==
PROVIDERS: Visit Provider Internal Medicine Medical Oncology
DX: C90.00 Multiple myeloma not having achieved remission (principal)
CPT/HCPCS: 36415; 80053; 82784; 83883; 84155; 84165; 85025; 86334

== ENCOUNTER → 2021-06-18 08:34 | Outpatient (CLI) | payer MEDICARE, SELFPAY ==
[2021-06-18 09:05] LABS: Basophils # 0.1 K/mm3 (0-0.2); Basophils % 1.2 % (0.1-2.0); Eosinophils # 0.4 K/mm3 (0.0-0.4); Eosinophils % 5.4 % (0.1-12.0); Hematocrit 42.4 % (42.0-52.0); Hemoglobin 13.6 g/dL (14.1-18.0); Lymphocytes # 2.5 K/mm3 (0.7-4.5); Lymphocytes % 35.3 % (10-50); Mean Corpuscular Hemoglobin 30.9 pg (27.0-31.2); Mean Corpuscular Volume 96.5 fl (80-94); Mean Platelet Volume 8.3 fl (7.4-10.4); Monocytes # 0.3 K/mm3 (0.1-1.0); Monocytes % 4.6 % (1.7-9.3); Neutrophils # 3.7 K/mm3 (1.8-7.8); Neutrophils % 53.5 % (37.0-80.0); Platelet Count 169 K/mm3 (142-424); Red Blood Count 4.39 M/mm3 (4.60-6.20); Red Cell Distribution Width 13.7 % (11.5-17.5)
[2021-06-18 09:57] LABS: Chloride 104 mmol/L (98-107)
[2021-06-18 09:58] LABS: Potassium 4.2 mmoL/L (3.5-5.1); Sodium 138 mmol/L (136-145)
[2021-06-18 10:00] LABS: Alanine Aminotransferase 25 U/L (12-78); Anion Gap 9.2 mEq/L (5-15); Aspartate Amino Transferase 35 U/L (17-59); Bilirubin,Total 0.5 mg/dl (0.2-1.3); Blood Urea Nitrogen 21 mg/dl (9-20); Carbon Dioxide 29 mmol/L (22.0-30.0); Estimated Glomerular Filt Rate 59 ml/min (>60); GFR (African American) 72 ML/MIN (>60)
[2021-06-18 10:01] LABS: Albumin Level 4.3 g/dl (3.5-5.0); Albumin/Globulin Ratio 1.5 (1.1-1.8); Alkaline Phosphatase 64 U/L (38-126); Calcium 9.7 mg/dl (8.4-10.2); Chol/HDL Ratio 3.7 (1-3.5); Cholesterol 111 mg/dl (140-200); Globulin 2.9 g/dL (1.3-3.2); Glucose 175 mg/dl (74-100); HDL Cholesterol 30 mg/dl (40-60); Total Protein,Serum 7.2 g/dl (6.3-8.2); Triglycerides 201 mg/dl (30-150); VLDL Cholesterol 40 mg/dL (0-40)
[2021-06-18 10:12] LABS: Direct LDL Cholesterol 57.85 mg/dL (100-129)
[2021-06-18 10:15] LABS: Triiodothryronine (T3) Uptake 32 % (23.5-40.5)
[2021-06-18 10:16] LABS: Free Thyroxine Index 2.3 ug/dL (5.93-13.13); T4 (Thyroxine) 7.1 ug/dl (5.53-11.0)
[2021-06-18 10:30] LABS: Thyroid Stimulating Hormone 2.68 uIU/mL (0.465-4.68)
[2021-06-18 11:03] LABS: Hemoglobin A1C 7.3 % (4.0-6.0)
[2021-06-19 14:15] LABS: Immunoglobulin A, Qn 199 mg/dL (61-437); Immunoglobulin G, Qn 1204 mg/dL (603-1613); Immunoglobulin M, Qn 128 mg/dL (15-143)
[2021-06-19 16:36] LABS: Albumin 3.6 g/dL (2.9-4.4); Alpha-1-Globulin 0.2 g/dL (0.0-0.4); Alpha-2-Globulin 0.8 g/dL (0.4-1.0); Gamma Globulin 1.3 g/dL (0.4-1.8); Protein, Total 7.1 g/dL (6.0-8.5)
[2021-07-11 17:07] LABS: Free Kappa Lt Chains 24.9; Free Lambda Lt Chains 18.6
== END ==
PROVIDERS: PCP Nurse Practitioner Family; Referring Provider Internal Medicine Medical Oncology; Visit Provider Nurse Practitioner Family
DX: E03.9 Hypothyroidism, unspecified (principal); E11.8 Type 2 diabetes mellitus with unspecified complications; I10 Essential (primary) hypertension; E78.5 Hyperlipidemia, unspecified; C90.02 Multiple myeloma in relapse
CPT/HCPCS: 36415; 80053; 80061; 82043; 82784; 83036; 83883; 84155; 84165; 84436; 84443; 84479; 85025; 86334

== ENCOUNTER → 2021-09-09 12:09 | Outpatient (CLI) | payer MEDICARE, SELFPAY ==
[2021-09-09 12:26] LABS: Basophils % 0.3 % (0.1-2.0); Eosinophils # 0.1 K/mm3 (0.0-0.4); Eosinophils % 1.1 % (0.1-12.0); Hematocrit 38.8 % (42.0-52.0); Hemoglobin 12.6 g/dL (14.1-18.0); Lymphocytes # 1.8 K/mm3 (0.7-4.5); Lymphocytes % 28.6 % (10-50); Mean Corpuscular HGB Conc 32.4 g/dL (31.8-35.4); Mean Corpuscular Hemoglobin 30.7 pg (27.0-31.2); Mean Corpuscular Volume 94.7 fl (80-94); Mean Platelet Volume 8.4 fl (7.4-10.4); Monocytes # 0.5 K/mm3 (0.1-1.0); Monocytes % 7.3 % (1.7-9.3); Neutrophils # 3.9 K/mm3 (1.8-7.8); Neutrophils % 62.7 % (37.0-80.0); Platelet Count 125 K/mm3 (142-424); White Blood Count 6.2 K/mm3 (4.8-10.8)
[2021-09-09 12:34] LABS: Chloride 107 mmol/L (98-107); Potassium 4.2 mmoL/L (3.5-5.1); Sodium 141 mmol/L (136-145)
[2021-09-09 12:36] LABS: Blood Urea Nitrogen 18 mg/dl (9-20); Estimated Glomerular Filt Rate 50 ml/min (>60); GFR (African American) 60 ML/MIN (>60)
[2021-09-09 12:37] LABS: Alanine Aminotransferase 61 U/L (12-78); Albumin/Globulin Ratio 1.4 (1.1-1.8); Alkaline Phosphatase 44 U/L (38-126); Anion Gap 10.2 mEq/L (5-15); Aspartate Amino Transferase 123 U/L (17-59); Bilirubin,Total 0.5 mg/dl (0.2-1.3); Calcium 8.9 mg/dl (8.4-10.2); Carbon Dioxide 28 mmol/L (22.0-30.0); Globulin 2.8 g/dL (1.3-3.2); Glucose 80 mg/dl (74-100); Lipase 39 U/L (23-300); Total Protein,Serum 6.8 g/dl (6.3-8.2)
[2021-09-11 10:14] LABS: Hep A Ab, IgM Negative (Negative); Hepatitis B Core Antibody IgM Negative (Negative); Hepatitis B Surface Antigen Negative (Negative); Hepatitis C Antibody <0.1 s/co ratio (0.0-0.9)
== END ==
PROVIDERS: PCP Nurse Practitioner Family; Visit Provider Nurse Practitioner Family
DX: R10.9 Unspecified abdominal pain (principal); R19.7 Diarrhea, unspecified
CPT/HCPCS: 36415; 80053; 80074; 83690; 85025

== ENCOUNTER → 2021-12-30 09:08 | Outpatient (CLI) | payer MEDICARE, SELFPAY ==
[2021-12-30 09:58] LABS: Basophils # 0.1 K/mm3 (0-0.2); Basophils % 0.9 % (0.1-2.0); Eosinophils # 0.4 K/mm3 (0.0-0.4); Eosinophils % 5.7 % (0.1-12.0); Hemoglobin 12.8 g/dL (14.1-18.0); Lymphocytes # 2.1 K/mm3 (0.7-4.5); Lymphocytes % 30.6 % (10-50); Mean Corpuscular HGB Conc 29.9 g/dL (31.8-35.4); Mean Corpuscular Hemoglobin 29.9 pg (27.0-31.2); Mean Platelet Volume 8.3 fl (7.4-10.4); Monocytes # 0.3 K/mm3 (0.1-1.0); Monocytes % 4.5 % (1.7-9.3); Neutrophils % 58.3 % (37.0-80.0); Platelet Count 141 K/mm3 (142-424); Red Cell Distribution Width 14.3 % (11.5-17.5); White Blood Count 6.9 K/mm3 (4.8-10.8)
[2021-12-30 10:17] LABS: Chloride 105 mmol/L (98-107); Sodium 140 mmol/L (136-145)
[2021-12-30 10:18] LABS: Potassium 4.6 mmoL/L (3.5-5.1)
[2021-12-30 10:20] LABS: Alanine Aminotransferase 27 U/L (12-78); Albumin Level 4.1 g/dl (3.5-5.0); Albumin/Globulin Ratio 1.5 (1.1-1.8); Alkaline Phosphatase 81 U/L (38-126); Anion Gap 10.6 mEq/L (5-15); Aspartate Amino Transferase 37 U/L (17-59); Bilirubin,Total 0.3 mg/dl (0.2-1.3); Blood Urea Nitrogen 20 mg/dl (9-20); Calcium 10.1 mg/dl (8.4-10.2); Carbon Dioxide 29 mmol/L (22.0-30.0); Estimated Glomerular Filt Rate 54 ml/min (>60); GFR (African American) 65 ML/MIN (>60); Globulin 2.7 g/dL (1.3-3.2); Glucose 285 mg/dl (74-100); Total Protein,Serum 6.8 g/dl (6.3-8.2)
[2021-12-31 15:11] LABS: Albumin 3.4 g/dL (2.9-4.4); Alpha-1-Globulin 0.2 g/dL (0.0-0.4); Alpha-2-Globulin 0.7 g/dL (0.4-1.0); Gamma Globulin 1.2 g/dL (0.4-1.8); Protein, Total 6.5 g/dL (6.0-8.5)
[2022-01-01 12:15] LABS: Immunoglobulin A, Qn 205 mg/dL (61-437); Immunoglobulin G, Qn 1122 mg/dL (603-1613); Immunoglobulin M, Qn 109 mg/dL (15-143)
[2022-01-10 18:54] LABS: Free Kappa Lt Chains 28.8; Free Lambda Lt Chains 20.3
== END ==
PROVIDERS: Visit Provider Internal Medicine Medical Oncology
DX: C90.00 Multiple myeloma not having achieved remission (principal)
CPT/HCPCS: 36415; 80053; 82784; 83883; 84155; 84165; 85025; 86334

== ENCOUNTER → 2022-02-23 08:54 | Outpatient (CLI) | payer MEDICARE, SELFPAY ==
--- NOTE | 2022-02-23 08:59 | CA_ITS ---
FINAL REPORT TECHNIQUE: Color Doppler, duplex Doppler and hampton scale sonography of the bilateral neck vasculature was performed. Velocities were measured in the carotid arteries. Stenosis evaluation based on velocity criteria. CLINICAL HISTORY: HTN, HLD, DM, CAD, pacemaker. FINDINGS: The peak systolic velocity of the right common carotid artery is 96 cm/sec and internal carotid artery 100 cm/sec. The diastolic velocity in the internal carotid artery is 35 cm/sec. The ICA/CCA ratio is 1.04. Visually, a small amount of plaque is seen. These findings are consistent with less than 50% stenosis. The external carotid artery is patent. The right vertebral artery is patent with antegrade flow. The peak systolic velocity of the left common carotid artery is 129 cm/sec and internal carotid artery 119 cm/sec. The diastolic velocity in the internal carotid artery is 33 cm/sec. The ICA/CCA ratio is 1.26. Visually, a small amount of plaque is seen. These findings are consistent with less than 50% stenosis. The external carotid artery is patent. The left vertebral artery is patent with antegrade flow. IMPRESSION: Less than 50% carotid stenosis bilaterally. Bilateral patent vertebral arteries. If indicated, CTA or MRA could further evaluate. Reviewed, Interpreted and Dictated by Yuri Anna III, MD Transcribed by Lauren Mejia Authenticated and [facility]
== END ==
PROVIDERS: PCP Family Medicine; Visit Provider Physician Assistant
DX: R09.89 Other specified symptoms and signs involving the circulatory and respiratory systems (principal)
CPT/HCPCS: 93880

== ENCOUNTER → 2022-05-28 06:49 | Outpatient (CLI) | payer MEDICARE, SELFPAY ==
[2022-05-28 18:32] LABS: Basophils # 0.1 K/mm3 (0-0.2); Basophils % 1.3 % (0.1-2.0); Eosinophils # 0.6 K/mm3 (0.0-0.4); Eosinophils % 7.6 % (0.1-12.0); Hematocrit 44.1 % (42.0-52.0); Hemoglobin 13.5 g/dL (14.1-18.0); Mean Corpuscular HGB Conc 30.7 g/dL (31.8-35.4); Mean Corpuscular Hemoglobin 30.2 pg (27.0-31.2); Mean Corpuscular Volume 98.2 fl (80-94); Monocytes # 0.3 K/mm3 (0.1-1.0); Monocytes % 4.4 % (1.7-9.3); Neutrophils # 3.6 K/mm3 (1.8-7.8); Neutrophils % 47.7 % (37.0-80.0); Platelet Count 154 K/mm3 (142-424); Red Blood Count 4.49 M/mm3 (4.60-6.20); Red Cell Distribution Width 14.6 % (11.5-17.5); White Blood Count 7.6 K/mm3 (4.8-10.8)
[2022-05-28 18:42] LABS: Alanine Aminotransferase 19 U/L (12-78); Albumin Level 4.2 g/dl (3.5-5.0); Albumin/Globulin Ratio 1.5 (1.1-1.8); Alkaline Phosphatase 65 U/L (38-126); Anion Gap 10.8 mEq/L (5-15); Aspartate Amino Transferase 30 U/L (17-59); Bilirubin,Total 0.5 mg/dl (0.2-1.3); Blood Urea Nitrogen 23 mg/dl (9-20); Calcium 9.1 mg/dl (8.4-10.2); Carbon Dioxide 31 mmol/L (22.0-30.0); Chloride 104 mmol/L (98-107); Chol/HDL Ratio 3.4 (1-3.5); Cholesterol 103 mg/dl (140-200); Estimated Glomerular Filt Rate 54 ml/min (>60); GFR (African American) 65 ML/MIN (>60); Globulin 2.8 g/dL (1.3-3.2); Glucose 149 mg/dl (74-100); HDL Cholesterol 30 mg/dl (40-60); Potassium 4.8 mmoL/L (3.5-5.1); Sodium 141 mmol/L (136-145); Triglycerides 149 mg/dl (30-150); VLDL Cholesterol 30 mg/dL (0-40)
[2022-05-28 18:53] LABS: Direct LDL Cholesterol 45.22 mg/dL (100-129)
[2022-05-28 19:13] LABS: Thyroid Stimulating Hormone 3.34 uIU/mL (0.465-4.68)
[2022-05-28 19:36] LABS: Microalbumin < 6.000 mg/L (0-16.7)
[2022-05-28 19:37] LABS: Hemoglobin A1C 7.3 % (4.0-6.0)
== END ==
PROVIDERS: PCP Family Medicine; Visit Provider Family Medicine
DX: I25.10 Atherosclerotic heart disease of native coronary artery without angina pectoris (principal); E78.5 Hyperlipidemia, unspecified; I10 Essential (primary) hypertension; E11.69 Type 2 diabetes mellitus with other specified complication; R06.00 Dyspnea, unspecified; R06.01 Orthopnea; R06.02 Shortness of breath; Z79.4 Long term (current) use of insulin
CPT/HCPCS: 80053; 80061; 82043; 83036; 84443; 85025

== ENCOUNTER 2022-06-22 17:57 | Emergency (ER) | payer MEDICARE, SELFPAY ==
[2022-06-22 18:11] VITALS: BP 138/76; PULSE 70; RESP 16; TEMP 37; O2SAT 96; BMI 30.9
[2022-06-22 18:30] VITALS: BP 138/76; PULSE 70; RESP 20; TEMP 37; O2SAT 96; BMI 30.7
--- NOTE | 2022-06-22 18:35 | EXP.UTC ---
Discharge Plan Disposition Patient Disposition: Home, Self-Care Condition: Good Prescriptions Prescriptions: New prednisone [prednisone] 20 mg tablet 20 mg PO DAILY 4 Days Qty: 4 0RF amoxicillin [amoxicillin] 500 mg tablet 500 mg PO TID 10 Days Qty: 30 0RF No Action (DME) Accu-Chek Guide test strips Strip See Rx Instructions .ROUTE .MEDSUPPLY Qty: 10 Rx Instructions: As directed (DME) insulin syringe-needle U-100 [BD Insulin Syringe Ultra-Fine] 0.5 mL 31 gauge x 5/16 syringe See Rx Instructions .ROUTE .MEDSUPPLY Qty: 10 Rx Instructions: As directed (DME) blood-glucose meter [Accu-Chek Guide Me Glucose Mtr] Misc See Rx Instructions .ROUTE .MEDSUPPLY Qty: 1 Rx Instructions: As directed gabapentin 300 mg capsule 300 mg PO TID Qty: 90 5RF pregabalin [Lyrica] 50 mg capsule 50 mg PO TID Qty: 90 5RF multivitamin Tablet 1 tab PO DAILY cyanocobalamin (vitamin B-12) 2,500 mcg tablet 2,500 mcg PO DAILY (DME) lancets [Accu-Chek Softclix Lancets] Misc See Rx Instructions .ROUTE .MEDSUPPLY Qty: 100 Rx Instructions: As directed codeine-guaifenesin 10-100 mg/5 mL liquid 10 ml PO Q4-6H PRN (Reason: cough) Qty: 240 1RF desoximetasone 0.25 % cream 1 applic topical BID PRN (Reason: skin irritation) Qty: 15 1RF calcium carbonate [Calcium 600] 600 mg calcium (1,500 mg) tablet 600 mg PO BID aspirin [Aspir-81] 81 mg tablet,delayed release (DR/EC) 81 mg PO DAILY Januvia 100 mg tablet 100 mg PO DAILY 90 Days Qty: 90 1RF glipizide 10 mg tablet extended release 24hr 10 mg PO BID 30 Days Qty: 60 3RF clopidogrel [Plavix] 75 mg tablet 75 mg PO DAILY Qty: 90 3RF insulin glargine [Lantus U-100 Insulin] 100 unit/mL solution 12 unit SQ DAILY 30 Days Qty: 3.6 3RF levothyroxine 88 mcg tablet 88 mcg PO DAILY 30 Days Qty: 30 2RF rosuvastatin 40 mg tablet 40 mg PO DAILY 30 Days Qty: 30 2RF fenofibrate 54 mg tablet 54 mg PO BID 30 Days Qty: 60 3RF furosemide [Lasix] 20 mg tablet 10 mg PO DAILY 90 Days Qty: 45 0RF losartan 25 mg tablet 25 mg PO DAILY 30 Days Qty: 30 2RF potassium chloride 10 mEq tablet extended release 20 meq PO BID 90 Days Qty: 360 0RF Referrals Follow up/Referrals: Mickey Lee MD [Primary Care Provider] - See instructions Activity Restrictions/Add. Instructions Additional Instructions/Restrictions: Drink plenty of fluids. Take tylenol or ibuprofen for pain or fever. Take the medications as directed. Follow up with your regular doctor. GO TO THE ER FOR ANY WORSENING SYMPTOMS Throw your tooth brush away and get a new one. Clinical Impressions Clinical Impression: Strep throat Instructions Patient Instructions: Strep Throat, DI for Strep Throat Discharge ED Provider: Godwin Mcnair [facility] General Stated complaint: pain when swallowing Mode of Arrival: Ambulatory Source of Information: Patient Limitations: No Limitations Time Seen by Provider: 06/22/22 18:36 Description of Symptoms (Recalled from Triage Doc. by RN): pt states that he was laying down today around 1300 and he began to have a sore throat. states no soa, nothing swallowed that could be stuck. History of Present Illness Provider Complaint: He states that since earlier today he has had a sore throat. He states that this is different than most sore throats he has had in that it seems like it is sore lower down than he has before. He denies any fever/chills. He has felt bad though. He has been around his grand children and thinks that one of them may have strep throat. Related Data Home Medications Medication Instructions Recorded Confirmed aspirin 81 mg tablet,delayed 81 mg PO DAILY heart health 06/09/17 05/21/22 release (Aspir-) calcium carbonate 600 mg calcium 600 mg PO BID Supplement 06/09/17 05/21/22 (1,500 mg) tablet (Calcium) blood sugar diagn
[2022-06-22 18:43] LABS: UTC Strep Screen (Rapid) Positive (Negative)
[2022-06-22 19:35] VITALS: BP 131/74; PULSE 77; RESP 20; TEMP 36.7; O2SAT 100
== END 2022-06-22 19:25 | disposition home or self-care (01) ==
PROVIDERS: Emergency Provider Nurse Practitioner Family; PCP Family Medicine
DX: J02.0 Streptococcal pharyngitis (principal)
CPT/HCPCS: 87880; 99212; G0463

== ENCOUNTER → 2022-07-14 15:01 | Outpatient (CLI) | payer MEDICARE, SELFPAY ==
[2022-07-14 15:50] LABS: Basophils # 0.1 K/mm3 (0-0.2); Basophils % 0.8 % (0.1-2.0); Eosinophils # 0.4 K/mm3 (0.0-0.4); Eosinophils % 5.6 % (0.1-12.0); Hematocrit 42.3 % (42.0-52.0); Hemoglobin 13.7 g/dL (14.1-18.0); Lymphocytes # 2.8 K/mm3 (0.7-4.5); Lymphocytes % 39.6 % (10-50); Mean Corpuscular HGB Conc 32.3 g/dL (31.8-35.4); Mean Corpuscular Hemoglobin 29.9 pg (27.0-31.2); Mean Corpuscular Volume 92.4 fl (80-94); Mean Platelet Volume 8.1 fl (7.4-10.4); Monocytes # 0.4 K/mm3 (0.1-1.0); Monocytes % 5.3 % (1.7-9.3); Neutrophils # 3.4 K/mm3 (1.8-7.8); Neutrophils % 48.7 % (37.0-80.0); Platelet Count 176 K/mm3 (142-424); Red Blood Count 4.58 M/mm3 (4.60-6.20); Red Cell Distribution Width 13.9 % (11.5-17.5)
[2022-07-14 16:31] LABS: Alanine Aminotransferase 25 U/L (12-78); Albumin Level 4.4 g/dl (3.5-5.0); Albumin/Globulin Ratio 1.6 (1.1-1.8); Alkaline Phosphatase 59 U/L (38-126); Anion Gap 8.3 mEq/L (5-15); Aspartate Amino Transferase 31 U/L (17-59); Bilirubin,Total 0.5 mg/dl (0.2-1.3); Blood Urea Nitrogen 22 mg/dl (9-20); Calcium 9.4 mg/dl (8.4-10.2); Carbon Dioxide 30 mmol/L (22.0-30.0); Chloride 109 mmol/L (98-107); Estimated Glomerular Filt Rate 49 ml/min (>60); GFR (African American) 60 ML/MIN (>60); Globulin 2.7 g/dL (1.3-3.2); Glucose 146 mg/dl (74-100); Potassium 4.3 mmoL/L (3.5-5.1); Sodium 143 mmol/L (136-145); Total Protein,Serum 7.1 g/dl (6.3-8.2)
[2022-07-14 17:43] LABS: Folate > 20.00 ng/mL; Vitamin B12 > 1000 pg/mL (239-931)
[2022-07-16 14:13] LABS: Immunoglobulin A, Qn 174 mg/dL (61-437); Immunoglobulin G, Qn 1060 mg/dL (603-1613); Immunoglobulin M, Qn 111 mg/dL (15-143)
[2022-07-16 15:23] LABS: Albumin 3.6 g/dL (2.9-4.4); Alpha-1-Globulin 0.2 g/dL (0.0-0.4); Alpha-2-Globulin 0.7 g/dL (0.4-1.0); Protein, Total 6.5 g/dL (6.0-8.5)
[2022-07-18 23:03] LABS: Free Kappa Lt Chains 27.9; Free Lambda Lt Chains 16.9
== END ==
PROVIDERS: PCP Family Medicine; Visit Provider Internal Medicine Medical Oncology
DX: C90.01 Multiple myeloma in remission (principal)
CPT/HCPCS: 36415; 80053; 82607; 82746; 82784; 83883; 84155; 84165; 85025; 86334

== ENCOUNTER → 2022-09-17 09:51 | Outpatient (CLI) | payer MEDICARE, SELFPAY ==
[2022-09-17 10:19] LABS: Basophils # 0.1 K/mm3 (0-0.2); Basophils % 0.7 % (0.1-2.0); Eosinophils # 0.3 K/mm3 (0.0-0.4); Eosinophils % 3.6 % (0.1-12.0); Hematocrit 42.8 % (42.0-52.0); Hemoglobin 13.6 g/dL (14.1-18.0); Lymphocytes # 2.5 K/mm3 (0.7-4.5); Lymphocytes % 36.5 % (10-50); Mean Corpuscular HGB Conc 31.8 g/dL (31.8-35.4); Mean Corpuscular Hemoglobin 29.6 pg (27.0-31.2); Mean Platelet Volume 7.5 fl (7.4-10.4); Monocytes # 0.4 K/mm3 (0.1-1.0); Monocytes % 6.3 % (1.7-9.3); Neutrophils # 3.6 K/mm3 (1.8-7.8); Neutrophils % 52.9 % (37.0-80.0); Platelet Count 132 K/mm3 (142-424); Red Cell Distribution Width 13.7 % (11.5-17.5); White Blood Count 6.9 K/mm3 (4.8-10.8)
[2022-09-17 11:17] LABS: Chloride 99 mmol/L (98-107); Potassium 4.2 mmoL/L (3.5-5.1); Sodium 143 mmol/L (136-145)
[2022-09-17 11:19] LABS: Alanine Aminotransferase 30 U/L (12-78); Aspartate Amino Transferase 36 U/L (17-59); Blood Urea Nitrogen 27 mg/dl (9-20); Estimated Glomerular Filt Rate 54 ml/min (>60); GFR (African American) 65 ML/MIN (>60)
[2022-09-17 11:20] LABS: Albumin Level 4.4 g/dl (3.5-5.0); Albumin/Globulin Ratio 1.8 (1.1-1.8); Alkaline Phosphatase 56 U/L (38-126); Anion Gap 19.2 mEq/L (5-15); Bilirubin,Total 0.5 mg/dl (0.2-1.3); Calcium 9.4 mg/dl (8.4-10.2); Carbon Dioxide 29 mmol/L (22.0-30.0); Chol/HDL Ratio 2.4 (1-3.5); Cholesterol 86 mg/dl (140-200); Globulin 2.4 g/dL (1.3-3.2); Glucose 90 mg/dl (74-100); HDL Cholesterol 36 mg/dl (40-60); Total Protein,Serum 6.8 g/dl (6.3-8.2); Triglycerides 103 mg/dl (30-150); VLDL Cholesterol 21 mg/dL (0-40)
[2022-09-17 11:31] LABS: Direct LDL Cholesterol 39.62 mg/dL (100-129)
[2022-09-17 11:50] LABS: Thyroid Stimulating Hormone 2.09 uIU/mL (0.465-4.68)
[2022-09-17 15:52] LABS: Hemoglobin A1C 7.2 % (4.0-6.0)
== END ==
PROVIDERS: PCP Family Medicine; Visit Provider Family Medicine
DX: E11.69 Type 2 diabetes mellitus with other specified complication (principal); E78.5 Hyperlipidemia, unspecified; I10 Essential (primary) hypertension; Z85.79 Personal history of other malignant neoplasms of lymphoid, hematopoietic and related tissues; R06.00 Dyspnea, unspecified; R06.01 Orthopnea; R06.02 Shortness of breath; Z79.4 Long term (current) use of insulin
CPT/HCPCS: 36415; 80053; 80061; 83036; 84443; 85025

== ENCOUNTER 2023-01-29 16:50 | Emergency (ER) | payer MEDICARE, SELFPAY ==
[2023-01-29] VITALS (8 sets, daily range): BP systolic 105–129; BP diastolic 51–62; PULSE 65–72; RESP 16–18; TEMP 36.7–36.9; O2SAT 91–97; BMI 29.7
--- NOTE | 2023-01-29 17:00 | HMH.EDGENADL ---
Discharge Plan Disposition Patient Disposition: Home, Self-Care Condition: Good Prescriptions Prescriptions: New epinephrine [EpiPen] 0.3 mg/0.3 mL auto-injector 0.3 mg IM Q10M PRN (Reason: anaphylaxis) Qty: 2 0RF Rx Instructions: for 2 doses Zyrtec 10 mg capsule 10 mg PO DAILY Qty: 30 0RF prednisone 50 mg tablet 50 mg PO DAILY 5 Days Qty: 5 0RF No Action (DME) blood-glucose meter [Accu-Chek Guide Me Glucose Mtr] [facility] See Rx Instructions .ROUTE .MEDSUPPLY Qty: 1 Rx Instructions: As directed multivitamin Tablet 1 tab PO DAILY cyanocobalamin (vitamin B-12) 2,500 mcg tablet 2,500 mcg PO DAILY calcium carbonate [Calcium 600] 600 mg calcium (1,500 mg) tablet 600 mg PO BID aspirin [Aspir-81] 81 mg tablet,delayed release (DR/EC) 81 mg PO DAILY clopidogrel 75 mg tablet 75 mg PO DAILY (DME) insulin syringe-needle U-100 [BD Insulin Syringe Ultra-Fine] 0.5 mL 31 gauge x 5/16 syringe See Rx Instructions .ROUTE .MEDSUPPLY Qty: 100 2RF Rx Instructions: As directed Januvia 100 mg tablet 100 mg PO DAILY 90 Days Qty: 90 1RF (DME) Accu-Chek Guide test strips Strip See Rx Instructions .ROUTE .MEDSUPPLY Qty: 100 2RF Rx Instructions: As directed (DME) lanc[facility] [[facility]Chek [facility]clix [facility]ets[facility] See Rx Instructions .ROUTE .MEDSUPPLY Qty: 100 2RF Rx Instructions: As directed potassium chloride 10 mEq capsule, extended release 20 meq PO BID 30 Days Qty: 120 2RF insulin glargine [Lantus U-100 Insulin] 100 unit/mL solution See Rx Instructions .ROUTE .COMPLEX Qty: 10 3RF Dose Instruction: INJECT 12 UNITS ONCE DAILY DIRECTED. DISCARD 28 DAYS AFTER PUNCTURE Rx Instructions: INJECT 12 UNITS ONCE DAILY DIRECTED. DISCARD 28 DAYS AFTER PUNCTURE losartan 25 mg tablet 25 mg PO DAILY 90 Days Qty: 90 0RF fenofibrate 54 mg tablet 54 mg PO BID 30 Days Qty: 60 3RF glipizide 10 mg tablet extended release 24hr 10 mg PO BID 90 Days Qty: 180 0RF levothyroxine 88 mcg tablet 88 mcg PO DAILY 90 Days Qty: 90 0RF rosuvastatin 40 mg tablet 40 mg PO DAILY 30 Days Qty: 30 2RF furosemide [Lasix] 20 mg tablet 10 mg PO DAILY 90 Days Qty: 45 0RF gabapentin 300 mg capsule 300 mg PO TID Qty: 90 0RF pregabalin [Lyrica] 50 mg capsule 50 mg PO TID Qty: 90 0RF Referrals Follow up/Referrals: Mickey Lee MD [Primary Care Provider] - See instructions Activity Restrictions/Add. Instructions Additional Instructions/Restrictions: You were evaluated in the emergency department today. At this time, the underlying cause of your angioedema, or tongue swelling, is not certain. It could be that it is related to an allergic reaction. I recommend taking a daily allergy medication. I also recommend picking up your prescription for your EpiPen that I have sent to the pharmacy for you and keeping it on hand as needed for allergic reactions. I am also providing you with a short course of steroids to help alleviate the symptoms. It could be that it is related to your medication, losartan. This medication is known to cause angioedema. I recommend that you stop taking this medication and call your provider who prescribed to you to determine if they would like to continue this or put you on a different medication. Please return to the emergency department should your symptoms recur or should you have any new or worsening symptoms. Otherwise, follow-up with your primary care provider soon as possible. It also may be beneficial for you to see allergy/immunology. Clinical Impressions Clinical Impression: Angioedema Qualifiers: Encounter type: initial encounter Qualified Code(s): T78.3XXA - Angioneurotic edema, initial encounter Instructions Patient Instructions: DI for Angioedema Discharge ED Provider: Regine Iraheta General Adult HPI General Chief complaint: Allergic Reaction State
== END 2023-01-29 20:11 | disposition home or self-care (01) ==
PROVIDERS: Emergency Provider Emergency Medicine; PCP Family Medicine
DX: T78.3XXA Angioneurotic edema, initial encounter (principal); I10 Essential (primary) hypertension; E78.5 Hyperlipidemia, unspecified; E11.9 Type 2 diabetes mellitus without complications; I25.119 Atherosclerotic heart disease of native coronary artery with unspecified angina pectoris; Z85.79 Personal history of other malignant neoplasms of lymphoid, hematopoietic and related tissues
CPT/HCPCS: 96372; 96374; 96375; 99291

== ENCOUNTER → 2023-02-16 09:31 | Outpatient (CLI) | payer MEDICARE, SELFPAY ==
[2023-02-16 10:43] LABS: Cholesterol 119 mg/dl (140-200); HDL Cholesterol 30 mg/dl (40-60); Triglycerides 224 mg/dl (30-150); VLDL Cholesterol 45 mg/dL (0-40)
[2023-02-16 10:54] LABS: Direct LDL Cholesterol 59.32 mg/dL (100-129)
== END ==
PROVIDERS: PCP Family Medicine; Visit Provider Nurse Practitioner
DX: C90.00 Multiple myeloma not having achieved remission (principal); E11.9 Type 2 diabetes mellitus without complications; E78.5 Hyperlipidemia, unspecified; G47.33 Obstructive sleep apnea (adult) (pediatric); I10 Essential (primary) hypertension; Z79.4 Long term (current) use of insulin
CPT/HCPCS: 36415; 80061

== ENCOUNTER → 2023-02-25 10:35 | Outpatient (CLI) | payer MEDICARE, SELFPAY ==
[2023-02-25 11:04] LABS: Basophils # 0.1 K/mm3 (0-0.2); Basophils % 0.8 % (0.1-2.0); Eosinophils # 0.6 K/mm3 (0.0-0.4); Hematocrit 39.6 % (42.0-52.0); Hemoglobin 13.5 g/dL (14.1-18.0); Lymphocytes # 2.2 K/mm3 (0.7-4.5); Lymphocytes % 35.4 % (10-50); Mean Corpuscular Hemoglobin 31.9 pg (27.0-31.2); Mean Corpuscular Volume 93.7 fl (80-94); Mean Platelet Volume 8.6 fl (7.4-10.4); Monocytes # 0.3 K/mm3 (0.1-1.0); Monocytes % 5.2 % (1.7-9.3); Neutrophils % 49.6 % (37.0-80.0); Platelet Count 148 K/mm3 (142-424); Red Blood Count 4.23 M/mm3 (4.60-6.20); Red Cell Distribution Width 14.2 % (11.5-17.5); White Blood Count 6.1 K/mm3 (4.8-10.8)
[2023-02-25 12:31] LABS: Alanine Aminotransferase 28 U/L (12-78); Albumin/Globulin Ratio 1.5 (1.1-1.8); Alkaline Phosphatase 73 U/L (38-126); Anion Gap 12.1 mEq/L (5-15); Aspartate Amino Transferase 36 U/L (17-59); Bilirubin,Total 0.6 mg/dl (0.2-1.3); Blood Urea Nitrogen 22 mg/dl (9-20); Carbon Dioxide 27 mmol/L (22.0-30.0); Chloride 106 mmol/L (98-107); Estimated Glomerular Filt Rate 59 ml/min (>60); GFR (African American) 71 ML/MIN (>60); Globulin 2.6 g/dL (1.3-3.2); Glucose 221 mg/dl (74-100); Potassium 4.1 mmoL/L (3.5-5.1); Sodium 141 mmol/L (136-145); Total Protein,Serum 6.6 g/dl (6.3-8.2)
[2023-03-01 13:15] LABS: Albumin 3.5 g/dL (2.9-4.4); Alpha-1-Globulin 0.2 g/dL (0.0-0.4); Alpha-2-Globulin 0.8 g/dL (0.4-1.0); Gamma Globulin 0.8 g/dL (0.4-1.8); Protein, Total 6.4 g/dL (6.0-8.5)
[2023-03-02 11:56] LABS: Immunoglobulin A, Qn 142; Immunoglobulin G, Qn 869
[2023-03-02 11:57] LABS: Free Kappa Lt Chains 25.3; Immunoglobulin M, Qn 128
[2023-03-02 11:58] LABS: Free Lambda Lt Chains 22.8
== END ==
PROVIDERS: PCP Family Medicine; Visit Provider Internal Medicine Medical Oncology
DX: C90.01 Multiple myeloma in remission (principal)
CPT/HCPCS: 36415; 80053; 82784; 83883; 84155; 84165; 85025; 86334

== ENCOUNTER 2023-07-28 20:51 | Outpatient (CLI) | payer MEDICARE, SELFPAY ==
[2023-07-28 18:08] LABS: Basophils # 0.1 K/mm3 (0-0.2); Eosinophils # 0.4 K/mm3 (0.0-0.4); Eosinophils % 6.8 % (0.1-12.0); Lymphocytes # 2.5 K/mm3 (0.7-4.5); Lymphocytes % 41.9 % (10-50); Mean Corpuscular HGB Conc 31.9 g/dL (31.8-35.4); Mean Corpuscular Hemoglobin 31.5 pg (27.0-31.2); Mean Corpuscular Volume 98.5 fl (80-94); Mean Platelet Volume 9.7 fl (7.4-10.4); Monocytes # 0.3 K/mm3 (0.1-1.0); Neutrophils # 2.7 K/mm3 (1.8-7.8); Neutrophils % 45.3 % (37.0-80.0); Platelet Count 124 K/mm3 (142-424); Red Blood Count 4.47 M/mm3 (4.60-6.20); Red Cell Distribution Width 13.8 % (11.5-17.5); White Blood Count 5.9 K/mm3 (4.8-10.8)
[2023-07-28 18:30] LABS: Hemoglobin A1C 7.7 % (4.0-6.0)
[2023-07-28 18:39] LABS: Alanine Aminotransferase 26 U/L (12-78); Albumin Level 4.3 g/dl (3.5-5.0); Albumin/Globulin Ratio 1.8 (1.1-1.8); Alkaline Phosphatase 67 U/L (38-126); Anion Gap 12.8 mEq/L (5-15); Aspartate Amino Transferase 34 U/L (17-59); Bilirubin,Total 0.5 mg/dl (0.2-1.3); Blood Urea Nitrogen 23 mg/dl (9-20); Carbon Dioxide 29 mmol/L (22.0-30.0); Chloride 106 mmol/L (98-107); Chol/HDL Ratio 4.1 (1-3.5); Cholesterol 112 mg/dl (140-200); Estimated Glomerular Filt Rate 49 ml/min (>60); GFR (African American) 60 ML/MIN (>60); Globulin 2.4 g/dL (1.3-3.2); Glucose 159 mg/dl (74-100); HDL Cholesterol 27 mg/dl (40-60); Potassium 4.8 mmoL/L (3.5-5.1); Sodium 143 mmol/L (136-145); Total Protein,Serum 6.7 g/dl (6.3-8.2); Triglycerides 211 mg/dl (30-150); VLDL Cholesterol 42 mg/dL (0-40)
[2023-07-28 18:51] LABS: Direct LDL Cholesterol 53.85 mg/dL (100-129)
[2023-07-28 19:12] LABS: Prostate Specific Ag Screen 0.3 ng/ml (0.0-4.0); Thyroid Stimulating Hormone 2.89 uIU/mL (0.465-4.68)
[2023-07-28 19:37] LABS: Creatinine,Urine Random 81 mg/dL (Not Estab.)
[2023-07-28 19:41] LABS: Benzodiazepines Screen,Urine Negative ng/ml (<200); Microalbumin/Creatinine Ratio 39.5
[2023-07-28 19:42] LABS: Amphetamine/Metha Screen,Urine Negative ng/ml (<1000); Barbiturates Screen,Urine Negative ng/ml (<200)
[2023-07-28 19:43] LABS: Cannabinoid Screen,Urine Negative ng/ml (<50)
[2023-07-28 19:44] LABS: Cocaine Screen,Urine Negative ng/ml (<300); Methadone Screen,Urine Negative ng/ml (<300)
[2023-07-28 19:45] LABS: Opiate Screen,Urine Negative ng/ml (<300)
[2023-07-28 19:46] LABS: Phencyclidine Screen,Urine Negative ng/ml (<25)
== END 2023-07-28 23:59 ==
LOC: LAB.DROPOF 20:52
PROVIDERS: PCP Family Medicine; Visit Provider Family Medicine
DX: Z12.5 Encounter for screening for malignant neoplasm of prostate (principal); Z51.81 Encounter for therapeutic drug level monitoring; E11.69 Type 2 diabetes mellitus with other specified complication; I10 Essential (primary) hypertension; R53.83 Other fatigue; Z79.4 Long term (current) use of insulin; Z79.899 Other long term (current) drug therapy
CPT/HCPCS: 80053; 80061; 80307; 82043; 82570; 83036; 84443; 85025; G0103

== ENCOUNTER 2023-08-27 13:26 | Outpatient (CLI) | payer MEDICARE, SELFPAY ==
[2023-08-27 13:36] VITALS: BMI 31.0
[2023-08-27 14:24] LABS: Chloride 106 mmol/L (98-107); Sodium 139 mmol/L (136-145)
[2023-08-27 14:27] LABS: Alanine Aminotransferase 32 U/L (12-78); Albumin/Globulin Ratio 1.5 (1.1-1.8); Alkaline Phosphatase 71 U/L (38-126); Aspartate Amino Transferase 41 U/L (17-59); Bilirubin,Total 0.6 mg/dl (0.2-1.3); Blood Urea Nitrogen 21 mg/dl (9-20); Carbon Dioxide 28 mmol/L (22.0-30.0); Creatinine Clearance Estimated 59 mL/min (50-200); Estimated Glomerular Filt Rate 49 ml/min (>60); GFR (African American) 60 ML/MIN (>60); Globulin 2.7 g/dL (1.3-3.2); Total Protein,Serum 6.7 g/dl (6.3-8.2)
[2023-08-27 14:28] LABS: Calcium 9.6 mg/dl (8.4-10.2); Glucose 142 mg/dl (74-100)
[2023-08-27 15:06] LABS: Basophils # 0.1 K/mm3 (0-0.2); Basophils % 1.1 % (0.1-2.0); Eosinophils # 0.5 K/mm3 (0.0-0.4); Eosinophils % 6.6 % (0.1-12.0); Hematocrit 41.5 % (42.0-52.0); Hemoglobin 13.3 g/dL (14.1-18.0); Lymphocytes # 2.9 K/mm3 (0.7-4.5); Lymphocytes % 42.5 % (10-50); Mean Corpuscular Hemoglobin 30.5 pg (27.0-31.2); Mean Corpuscular Volume 95.1 fl (80-94); Mean Platelet Volume 8.3 fl (7.4-10.4); Monocytes # 0.3 K/mm3 (0.1-1.0); Monocytes % 4.7 % (1.7-9.3); Neutrophils # 3.1 K/mm3 (1.8-7.8); Neutrophils % 45.1 % (37.0-80.0); Platelet Count 150 K/mm3 (142-424); Red Blood Count 4.36 M/mm3 (4.60-6.20); Red Cell Distribution Width 13.9 % (11.5-17.5); White Blood Count 6.8 K/mm3 (4.8-10.8)
[2023-08-30 13:08] LABS: Immunoglobulin A, Qn 183 mg/dL (61-437); Immunoglobulin G, Qn 1140 mg/dL (603-1613); Immunoglobulin M, Qn 121 mg/dL (15-143)
[2023-08-30 15:40] LABS: Albumin 3.6 g/dL (2.9-4.4); Alpha-1-Globulin 0.2 g/dL (0.0-0.4); Alpha-2-Globulin 0.7 g/dL (0.4-1.0); Gamma Globulin 1.1 g/dL (0.4-1.8); Protein, Total 6.6 g/dL (6.0-8.5)
[2023-08-31 10:02] LABS: PDF SCANNED IMAGE
[2023-08-31 10:03] LABS: Free Kappa Lt Chains 35.9; Free Lambda Lt Chains 25.6
== END 2023-08-27 14:00 | disposition home or self-care (01) ==
LOC: INF 13:27
PROVIDERS: PCP Family Medicine; Visit Provider Internal Medicine Medical Oncology
DX: C90.02 Multiple myeloma in relapse (principal)
CPT/HCPCS: 36415; 80053; 82784; 83883; 84155; 84165; 85025; 86334

== ENCOUNTER 2023-09-21 07:46 | Outpatient (CLI) | payer MEDICARE, SELFPAY ==
--- NOTE | 2023-09-21 | CA_ITS ---
APPROVED REPORT EXAM: Comprehensive 2D, Doppler, and color-flow Echocardiogram Proofsheet Corrector: Ailyn Patricia CRT Ht: 5 ft 8 in Wt: 202lbs BSA: 2.05 BP: 112/74 mmHg Indications: Diabetes, Hyperlipidemia, Hypertension/HDD, STENTS, PACER, MULTIPLE MYELOMA 2D Dimensions LA Volume 22.90 mL LA Volume Index 10.90 mL/m2 (M/F) 16-34 M-Mode Dimensions RVDd 2.70 cm (0.9-2.6) LA Diam 3.23 cm (1.9-4.0) LVDd 4.96 cm (3.5-5.7) LVDs 3.18 cm (3.5-5.7) IVSd 1.65 cm (0.6-1.1) PWd 1.01 cm (0.6-1.1) EF (Teich) 65.30% FS 35.90% EDV (Teich) 116.10 mL TAPSE 2.26 (<1.7) ESV (Teich) 40.30 mL LV Diastology E Decel Time 333 (160-240 msec) E/A Ratio 0.61 MED A' 9.70 cm/s LAT A' 9.40 cm/s Aortic Valve AO Peak GR. 6.40 mmHg Mitral Valve MV A Velocity 99.0 (40-130 cm/s) E/A Ratio 0.61 Pulmonary Valve PV Peak Velocity 80.0 (50-150 cm/s) Tricuspid Valve TR P. Velocity 279.00 cm/s RAP Estimate 10.00 mmHg RVSP 41.20 mmHg Left Ventricle The left ventricle is normal size. The left ventricular systolic function is normal. The left ventricular ejection fraction is within the normal range. There is normal left ventricular wall thickness. The septum is asynchronous. The left ventricular diastolic function is normal. LVEF is 55%. Right Ventricle Right ventricle is mildly dilated. The right ventricular systolic function is normal. Atria The left atrium size is normal. The right atrium size is normal. There is no Doppler evidence of interatrial shunt. Aortic Valve The aortic valve is mildly thickened. There is no aortic valvular stenosis. No aortic regurgitation is present. Mitral Valve The mitral valve is normal in structure. No evidence of mitral valve stenosis. There is no mitral valve regurgitation noted. Tricuspid Valve The tricuspid valve leaflets are thin and pliable. Trace tricuspid regurgitation. There is insufficient TR jet to estimate RVSP. Pulmonic Valve The pulmonary valve is normal in structure. Trace pulmonic regurgitation. Great Vessels The aortic root is normal in size. The ascending aorta is not well visualized. IVC is normal in size and collapses >50% with inspiration. Pericardium There is no pericardial effusion. Other Information Study Quality: Fair Conclusion Normal biventricular systolic function. Asynchronous septum. Mildly dilated RV. No significant valvular stenosis or regurgitation. Electronically signed by : Ailin Lauren MD 09/24/2023 19:27:29
== END 2023-09-21 23:59 | disposition home or self-care (01) ==
LOC: RT 07:47
PROVIDERS: PCP Family Medicine; Visit Provider Nurse Practitioner
DX: E78.5 Hyperlipidemia, unspecified (principal); Z95.5 Presence of coronary angioplasty implant and graft; Z95.1 Presence of aortocoronary bypass graft; I10 Essential (primary) hypertension; Z79.899 Other long term (current) drug therapy
CPT/HCPCS: 93306

== ENCOUNTER 2023-10-25 18:00 | Outpatient (CLI) | payer MEDICARE, SELFPAY ==
[2023-10-25 18:10] LABS: Hemoglobin A1C 7.3 % (4.0-6.0)
== END 2023-10-25 23:59 | disposition home or self-care (01) ==
LOC: LAB.DROPOF 10-26 09:24
PROVIDERS: PCP Family Medicine; Visit Provider Family Medicine
DX: E11.9 Type 2 diabetes mellitus without complications (principal); Z79.4 Long term (current) use of insulin
CPT/HCPCS: 83036

== ENCOUNTER 2024-02-28 08:43 | Outpatient (CLI) | payer MEDICARE, SELFPAY ==
[2024-02-28 09:28] LABS: Basophils # 0.1 K/mm3 (0-0.2); Basophils % 1.3 % (0.1-2.0); Eosinophils # 0.5 K/mm3 (0.0-0.4); Eosinophils % 7.5 % (0.1-12.0); Hematocrit 35.8 % (42.0-52.0); Hemoglobin 14.1 g/dL (14.1-18.0); Lymphocytes # 2.5 K/mm3 (0.7-4.5); Lymphocytes % 40.4 % (10-50); Mean Corpuscular HGB Conc 39.4 g/dL (31.8-35.4); Mean Corpuscular Hemoglobin 35.5 pg (27.0-31.2); Mean Corpuscular Volume 90.3 fl (80-94); Mean Platelet Volume 7.9 fl (7.4-10.4); Monocytes # 0.3 K/mm3 (0.1-1.0); Neutrophils # 2.8 K/mm3 (1.8-7.8); Neutrophils % 45.9 % (37.0-80.0); Platelet Count 128 K/mm3 (142-424); Red Blood Count 3.97 M/mm3 (4.60-6.20); Red Cell Distribution Width 14.4 % (11.5-17.5); White Blood Count 6.1 K/mm3 (4.8-10.8)
[2024-02-28 09:46] LABS: Albumin Level 4.2 g/dl (3.5-5.0); Chloride 108 mmol/L (98-107); Potassium 4.3 mmoL/L (3.5-5.1); Sodium 140 mmol/L (136-145)
[2024-02-28 09:49] LABS: Alanine Aminotransferase 22 U/L (12-78); Albumin/Globulin Ratio 1.6 (1.1-1.8); Alkaline Phosphatase 53 U/L (38-126); Anion Gap 11.3 mEq/L (5-15); Aspartate Amino Transferase 29 U/L (17-59); Bilirubin,Total 0.5 mg/dl (0.2-1.3); Blood Urea Nitrogen 22 mg/dl (9-20); Carbon Dioxide 25 mmol/L (22.0-30.0); Estimated Glomerular Filt Rate 59 ml/min (>60); GFR (African American) 71 ML/MIN (>60); Globulin 2.7 g/dL (1.3-3.2); Total Protein,Serum 6.9 g/dl (6.3-8.2)
[2024-02-28 09:50] LABS: Calcium 9.7 mg/dl (8.4-10.2); Glucose 121 mg/dl (74-100)
[2024-02-29 13:11] LABS: Albumin 3.8 g/dL (2.9-4.4); Alpha-1-Globulin 0.2 g/dL (0.0-0.4); Alpha-2-Globulin 0.7 g/dL (0.4-1.0); Protein, Total 6.7 g/dL (6.0-8.5)
[2024-02-29 16:20] LABS: Free Lambda Lt Chains 20.2 mg/L (5.7-26.3); Immunoglobulin A, Qn 180 mg/dL (61-437); Immunoglobulin G, Qn 1052 mg/dL (603-1613); Immunoglobulin M, Qn 122 mg/dL (15-143)
[2024-03-23 15:46] LABS: PDF SCANNED IMAGE
== END 2024-02-28 23:59 | disposition home or self-care (01) ==
LOC: LAB 08:45
PROVIDERS: PCP Family Medicine; Visit Provider Internal Medicine Medical Oncology
DX: C90.00 Multiple myeloma not having achieved remission (principal)
CPT/HCPCS: 36415; 80053; 82784; 83883; 84155; 84165; 85025; 86334

== ENCOUNTER 2024-08-14 07:39 | Outpatient (CLI) | payer MEDICARE, SELFPAY ==
[2024-08-14 08:21] LABS: Basophils # 0.1 K/mm3 (0-0.2); Basophils % 0.9 % (0.1-2.0); Eosinophils # 0.4 K/mm3 (0.0-0.4); Eosinophils % 5.9 % (0.1-12.0); Hemoglobin 13.5 g/dL (14.1-18.0); Lymphocytes # 2.7 K/mm3 (0.7-4.5); Lymphocytes % 38.7 % (10-50); Mean Corpuscular HGB Conc 32.9 g/dL (31.8-35.4); Mean Corpuscular Hemoglobin 30.9 pg (27.0-31.2); Mean Corpuscular Volume 93.8 fl (80-94); Mean Platelet Volume 10.1 fl (7.4-10.4); Monocytes # 0.4 K/mm3 (0.1-1.0); Neutrophils # 3.4 K/mm3 (1.8-7.8); Neutrophils % 48.1 % (37.0-80.0); Platelet Count 125 K/mm3 (142-424); Red Blood Count 4.37 M/mm3 (4.60-6.20); Red Cell Distribution Width 13.1 % (11.5-17.5)
[2024-08-14 08:49] LABS: Albumin Level 4.2 g/dl (3.5-5.0); Chloride 103 mmol/L (98-107); Potassium 5.1 mmoL/L (3.5-5.1); Sodium 141 mmol/L (136-145)
[2024-08-14 08:52] LABS: Alanine Aminotransferase 26 U/L (12-78); Albumin/Globulin Ratio 1.8 (1.1-1.8); Alkaline Phosphatase 66 U/L (38-126); Anion Gap 11.1 mEq/L (5-15); Aspartate Amino Transferase 37 U/L (17-59); Bilirubin,Total 0.5 mg/dl (0.2-1.3); Blood Urea Nitrogen 22 mg/dl (9-20); Calcium 9.8 mg/dl (8.4-10.2); Carbon Dioxide 32 mmol/L (22.0-30.0); Estimated Glomerular Filt Rate 49 ml/min (>60); GFR (African American) 59 ML/MIN (>60); Globulin 2.3 g/dL (1.3-3.2); Glucose 182 mg/dl (74-100); Total Protein,Serum 6.5 g/dl (6.3-8.2)
== END 2024-08-14 23:59 | disposition home or self-care (01) ==
LOC: LAB 07:41
PROVIDERS: PCP Family Medicine; Visit Provider Internal Medicine Medical Oncology
DX: C90.01 Multiple myeloma in remission (principal)
CPT/HCPCS: 36415; 80053; 85025

== ENCOUNTER 2024-08-30 09:18 | Outpatient (CLI) | payer MEDICARE, SELFPAY ==
[2024-08-31 15:11] LABS: Albumin 3.8 g/dL (2.9-4.4); Alpha-1-Globulin 0.2 g/dL (0.0-0.4); Alpha-2-Globulin 0.8 g/dL (0.4-1.0); Free Kappa Lt Chains 24.7 mg/L (3.3-19.4); Free Lambda Lt Chains 20.1 mg/L (5.7-26.3)
[2024-09-01 16:20] LABS: Immunoglobulin A, Qn 181 mg/dL (61-437); Immunoglobulin G, Qn 1004 mg/dL (603-1613); Immunoglobulin M, Qn 113 mg/dL (15-143)
[2024-09-03 10:27] LABS: PDF SCANNED IMAGE
== END 2024-08-30 23:59 | disposition home or self-care (01) ==
LOC: LAB 09:21
PROVIDERS: PCP Family Medicine; Visit Provider Internal Medicine Medical Oncology
DX: C90.01 Multiple myeloma in remission (principal)
CPT/HCPCS: 82784; 83883; 84155; 84165; 86334

== ENCOUNTER 2024-12-04 13:25 | Outpatient (CLI) | payer MEDICARE, SELFPAY ==
--- OUTSIDE RECORDS SUMMARY | 2024-12-04 13:29 | XMS_ITS | Clinical Summary ---
Author Organization Healthcare Address [address] [place] [address] Care Team Providers Care Round Up Ring Hand Name Role Phone Lizy Blank TIMBER MANAGEMENT TECHNICIAN Primary Care Provider [phone]- [phone] Family History Medical History Relation Name Comments Diabetes Brother 1 Hypertension Brother 2 Skin cancer Mother Relation Name Status Comments Brother 1 Brother 2 Mother Social History Tobacco Use Types Packs/Day Years Used Date Smoking Tobacco: Never Alcohol Use Standard Drinks/Week Comments No 0 (1 standard drink = 0.6 oz pur e alcohol) Sex and Gender Information Value Date Recorded Sex Assigned at Not on file Legal Sex Male 6:29 PM EDT Gender Identity Not on file Sexual Orientation Not on file Last Filed Vital Signs Vital Sign Reading Time Taken Comments Blood Pressure - - Pulse - - Temperature - - Respiratory Rate - - Oxygen Saturation - - Inhaled Oxygen Concentration - - Weight 102 kg (225 lb) 10/25/2014 1:43 PM EDT Height 172.7 cm (5' 8 ) 07/26/2014 1:22 PM EDT Body Mass Index 34.21 07/26/2014 1:22 PM EDT Plan of Treatment Not on file Care Teams Round Up Ring Hand Relationship Specialty Start Date End Date Lizy Blank APRN [address] [place] [address] PCP - General 09/27/20
--- OUTSIDE RECORDS SUMMARY | 2024-12-04 13:29 | XMS_ITS ---
Author Organization Unknown TREATMENT PLAN [facility] Start Date Provider Encounter for Check-up [id number] [facility]
[2024-12-04 13:31] LABS: Adenovirus F 40/41, stool Not Detected (NotDetected); Cyclospora Cayetanesis Not Detected (NotDetected); Plesimonas Shigalloides, PCR Not Detected (NotDetected); Salmonella, PCR Not Detected (NotDetected); Shiga-like toxin E coli Not Detected (NotDetected); Shigella Enterovasive E coli Not Detected (NotDetected); Vibrio, PCR Not Detected (NotDetected); Yersinia Entercolitica, PCR Not Detected (NotDetected)
[2024-12-04 15:06] LABS: Occult Blood,Stool Negative (Negative)
[2024-12-04 17:32] LABS: Clostridium Difficile A/B, PCR Detected (NotDetected)
== END 2024-12-04 23:59 | disposition home or self-care (01) ==
LOC: LAB.DROPOF 13:25
PROVIDERS: PCP Family Medicine; Visit Provider Family Medicine
DX: R19.7 Diarrhea, unspecified (principal)
CPT/HCPCS: 82272; 87045; 87507; G0328

== ENCOUNTER 2025-02-21 10:30 | Outpatient (CLI) | payer MEDICARE, SELFPAY ==
--- OUTSIDE RECORDS SUMMARY | 2025-02-23 01:28 | XMS_ITS | Clinical Summary ---
Author Organization Healthcare Address [address] [place] [address] Care Team Providers Care Retort Feeder Ground Bone Name Role Phone Lizy Blank PULVERIZER FEEDER Primary Care Provider +1- [phone] Family History Medical History Relation Name Comments [...] of Treatment Not on file Care Teams Retort Feeder Ground Bone Relationship Specialty Start Date End Date Lizy Blank APRN [address] [place] [address] PCP - General 09/27/20
== END 2025-02-21 23:59 | disposition home or self-care (01) ==
LOC: LAB.DROPOF 02-23 01:26
PROVIDERS: PCP Family Medicine; Visit Provider Family Medicine
DX: E11.9 Type 2 diabetes mellitus without complications (principal)
CPT/HCPCS: 82043; 82570

== ENCOUNTER 2025-05-09 21:17 | Emergency (ER) | payer MEDICARE, SELFPAY ==
[2025-05-09 22:07] VITALS: BP 122/51; PULSE 69; RESP 17; TEMP 36.4; O2SAT 92; BMI 30.7
--- OUTSIDE RECORDS SUMMARY | 2025-05-09 22:10 | XMS_ITS ---
Laboratory report Created on: April 17, 2025 LEES REBECCA : 1945 Sex: Male Author Organization Unknown PROBLEMS Problems List Code Description RESULTS Laboratory Orders Date Order Code Test 2024-02-28 [id number] PROTEIN ELECTRO. ,S 2024-02-28 [id number] IMMUNOFIXATION, SERUM 2024-02-28 [id number] FREE K+L LT KOFFI NS,QN,S Laboratory Results Date LOINC Test Value Unit Reference Range Interpre tation 2024-02-28 2885-2 PROTEIN, TOTAL 6.7 G/DL 6.0-8.5 2024-02-28 2862-1 ALBUMIN 3.8 G/DL 2.9-4.4 2024-02-28 2865-4 FQAYB-4-XEEXHOOL .2 G/DL 0.0-0.4 2024-02-28 2868-8 ZNDUD-6-NIXZDTAV .7 G/DL 0.4-1.0 2024-02-28 2871-2 BETA GLOBULIN 1 G/DL 0.7-1.3 2024-02-28 2874-6 GAMMA GLOBULIN 1 G/DL 0.4-1.8 2024-02-28 78381-2 M-SPIKE NOB G/DL NOT OBSERVED 2024-02-28 85387-3 GLOBULIN, TOTAL 2.9 G/DL 2.2-3.9 2024-02-28 1759-0 A/G RATIO 1.3 0.7-1.7 2024-02-28 57167-3 PDF IMAGE 2024-02-28 47765-8 IMMUNOFIXATION R ESULT, SERUM UPEIP 2024-02-28 2465-3 IMMUNOGLOBULIN G , QN, SERUM 1052 MG/DL 603-1613 2024-02-28 2458-8 IMMUNOGLOBULIN A , QN, SERUM 180 MG/DL 61-437 2024-02-28 2472-9 IMMUNOGLOBULIN M , QN, SERUM 122 MG/DL 15-143 2024-02-28 82382-9 FREE KAPPA LT CHAINS,S 27 MG/L 3.3-19 .4 H 2024-02-28 94933-5 FREE LAMBDA LT CHAINS,S 20.2 MG/L 5.7-2 6.3 2024-02-28 21705-1 KAPPA/LAMBDA RATIO,S 1.34 0.26-1.6 5
--- OUTSIDE RECORDS SUMMARY | 2025-05-09 22:10 | XMS_ITS ---
Laboratory report Created on: April 17, 2025 REBECCA LEES : 1945 Sex: Male Author Organization Unknown PROBLEMS Problems List Code Description RESULTS Laboratory Orders Date Order Code Test 2024-12-04 [id number] STOOL CULTURE Laboratory Results Date LOINC Test Value Unit Reference Range Interpre tation 2024-12-04 32171-3 SALMONELLA/SHIGE LLA SCREEN FINAL 2024-12-04 6463-4 RESULT 1 NSS 2024-12-04 6331-3 CAMPYLOBACTER CULTURE FINAL 2024-12-04 6463-4 RESULT 1 NCI 2024-12-04 65406-1 E COLI SHIGA TOXIN EIA N NEGATI VE
--- OUTSIDE RECORDS SUMMARY | 2025-05-09 22:10 | XMS_ITS | Clinical Summary ---
Author Organization Healthcare Address [address] [place] [address] Care Team Providers Care Apiarist Name Role Phone Lizy Blank DIRECTOR OF LEADERSHIP DEVELOPMENT Primary Care Provider +1- [phone] Family History Medical History Relation Name Comments [...] of Treatment Not on file Care Teams Apiarist Relationship Specialty Start Date End Date Lizy Blank APRN [address] [place] [address] PCP - General 09/27/20
--- OUTSIDE RECORDS SUMMARY | 2025-05-09 22:10 | XMS_ITS ---
Laboratory report Created on: April 17, 2025 LEES REBECCA : 1945 Sex: Male Author Organization Unknown PROBLEMS Problems List Code Description RESULTS Laboratory Orders Date Order Code Test 2024-08-30 [id number] PROTEIN ELEC + I NTERP, SERUM 2024-08-30 [id number] IMMUNOFIXATION, SERUM 2024-08-30 [id number] FREE K+L LT KOFFI NS,QN,S Laboratory Results Date LOINC Test Value Unit Reference Range Interpre tation 2024-08-30 2885-2 PROTEIN, TOTAL 7 G/DL 6.0-8.5 2024-08-30 2862-1 ALBUMIN 3.8 G/DL 2.9-4.4 2024-08-30 2865-4 JQDEA-7-BDUYVEHH .2 G/DL 0.0-0.4 2024-08-30 2868-8 WIIDA-9-NTZZWXKZ .8 G/DL 0.4-1.0 2024-08-30 2871-2 BETA GLOBULIN 1.2 G/DL 0.7-1.3 2024-08-30 2874-6 GAMMA GLOBULIN 1 G/DL 0.4-1.8 2024-08-30 31722-3 M-SPIKE NOB G/DL NOT OBSERVED 2024-08-30 43018-6 GLOBULIN, TOTAL 3.2 G/DL 2.2-3.9 2024-08-30 1759-0 A/G RATIO 1.2 0.7-1.7 2024-08-30 89415-7 P E INTERPRETATION, S SPEP1 2024-08-30 78835-7 PDF IMAGE 2024-08-30 68359-5 IMMUNOFIXATION R ESULT, SERUM UPEIP 2024-08-30 2465-3 IMMUNOGLOBULIN G , QN, SERUM 1004 MG/DL 603-1613 2024-08-30 2458-8 IMMUNOGLOBULIN A , QN, SERUM 181 MG/DL 61-437 2024-08-30 2472-9 IMMUNOGLOBULIN M , QN, SERUM 113 MG/DL 15-143 2024-08-30 09159-8 FREE KAPPA LT CHAINS,S 24.7 MG/L 3.3-19 .4 H 2024-08-30 23566-0 FREE LAMBDA LT CHAINS,S 20.1 MG/L 5.7-2 6.3 2024-08-30 59660-5 KAPPA/LAMBDA RATIO,S 1.23 0.26-1.6 5
--- OUTSIDE RECORDS SUMMARY | 2025-05-09 22:10 | XMS_ITS ---
Laboratory report Created on: April 17, 2025 NABEEL REBECCA : 1945 Sex: Male Author Organization Unknown PROBLEMS Problems List Code Description RESULTS Laboratory Orders Date Order Code Test 2023-08-27 [id number] PROTEIN ELECTRO. ,S 2023-08-27 [id number] IMMUNOFIXATION, SERUM 2023-08-27 [id number] FREE K+L LT KOFFI NS,QN,S Laboratory Results Date LOINC Test Value Unit Reference Range Interpre tation 2023-08-27 2885-2 PROTEIN, TOTAL 6.6 G/DL 6.0-8.5 2023-08-27 2862-1 ALBUMIN 3.6 G/DL 2.9-4.4 2023-08-27 2865-4 OYUPI-5-WNQJWMGM .2 G/DL 0.0-0.4 2023-08-27 2868-8 PAKBG-0-YFLNHCBX .7 G/DL 0.4-1.0 2023-08-27 2871-2 BETA GLOBULIN 1 G/DL 0.7-1.3 2023-08-27 2874-6 GAMMA GLOBULIN 1.1 G/DL 0.4-1.8 2023-08-27 46518-5 M-SPIKE NOB G/DL NOT OBSERVED 2023-08-27 20441-8 GLOBULIN, TOTAL 3 G/DL 2.2-3.9 2023-08-27 1759-0 A/G RATIO 1.2 0.7-1.7 2023-08-27 04425-0 PDF IMAGE 2023-08-27 46387-0 IMMUNOFIXATION R ESULT, SERUM UPEIP 2023-08-27 2465-3 IMMUNOGLOBULIN G , QN, SERUM 1140 MG/DL 603-1613 2023-08-27 2458-8 IMMUNOGLOBULIN A , QN, SERUM 183 MG/DL 61-437 2023-08-27 2472-9 IMMUNOGLOBULIN M , QN, SERUM 121 MG/DL 15-143 2023-08-27 05583-9 FREE KAPPA LT CHAINS,S 35.9 MG/L 3.3-19 .4 H 2023-08-27 46366-1 FREE LAMBDA LT CHAINS,S 25.6 MG/L 5.7-2 6.3 2023-08-27 67239-3 KAPPA/LAMBDA RATIO,S 1.4 0.26-1.6 5
--- NOTE | 2025-05-09 22:29 | HMH.EDGENADL ---
Discharge Plan Disposition Patient Disposition: Home, Self-Care Condition: Good Prescriptions Prescriptions: New sulfamethoxazole-trimethoprim [Bactrim DS] 800-160 mg tablet 1 tab PO BID 5 Days Qty: 10 0RF acetaminophen [Tylenol 8 Hour] 650 mg tablet extended release 650 mg PO Q8H PRN (Reason: fever or pain) Qty: 20 0RF ibuprofen 600 mg tablet 600 mg PO Q8H Qty: 20 0RF No Action (DME) blood-glucose meter [Accu-Chek Guide Me Glucose Mtr] Misc See Rx Instructions .ROUTE .MEDSUPPLY Qty: 1 Rx Instructions: As directed multivitamin Tablet 1 tab PO DAILY cyanocobalamin (vitamin B-12) 2,500 mcg tablet 2,500 mcg PO DAILY diphenoxylate-atropine [Lomotil] 2.5-0.025 mg tablet 1 tab PO QID PRN (Reason: diarrhea) Qty: 30 1RF aspirin [Aspir-81] 81 mg tablet,delayed release (DR/EC) 81 mg PO DAILY calcium carbonate [Calcium 600] 600 mg calcium (1,500 mg) tablet 600 mg PO BID 30 Days Qty: 60 2RF (DME) insulin syringe-needle U-100 0.5 mL 31 gauge x 5/16 syringe See Rx Instructions .ROUTE .MEDSUPPLY Qty: 100 2RF Rx Instructions: As directed clopidogrel 75 mg tablet 75 mg PO DAILY Qty: 30 5RF vancomycin 125 mg capsule 125 mg PO QID Qty: 40 0RF (DME) lancets [Accu-Chek Softclix Lancets] Misc See Rx Instructions .ROUTE .MEDSUPPLY Qty: 100 2RF Rx Instructions: Pt is to test BID prn losartan 25 mg tablet 25 mg PO DAILY 90 Days Qty: 90 0RF potassium chloride 10 mEq capsule, extended release 20 meq PO BID 90 Days Qty: 360 0RF insulin glargine [Lantus U-100 Insulin] 100 unit/mL solution 36 unit SQ DAILY 30 Days Qty: 11.4 3RF Rx Instructions: 36-38 units furosemide [Lasix] 20 mg tablet 10 mg PO DAILY 90 Days Qty: 45 0RF levothyroxine 88 mcg tablet 88 mcg PO DAILY 90 Days Qty: 90 0RF rosuvastatin 40 mg tablet 40 mg PO DAILY 90 Days Qty: 90 0RF fenofibrate 54 mg tablet 54 mg PO BID 90 Days Qty: 180 3RF glipizide 10 mg tablet extended release 24hr 10 mg PO BID 90 Days Qty: 180 0RF (DME) Accu-Chek Guide test strips Strip See Rx Instructions .ROUTE .MEDSUPPLY Qty: 100 2RF Rx Instructions: BID gabapentin 300 mg capsule 300 mg PO TID Qty: 90 2RF pregabalin [Lyrica] 50 mg capsule 50 mg PO TID Qty: 90 2RF epinephrine [EpiPen] 0.3 mg/0.3 mL auto-injector 0.3 mg IM Q10M PRN (Reason: anaphylaxis) Qty: 2 0RF Rx Instructions: for 2 doses Referrals Follow up/Referrals: Mickey Lee MD [Primary Care Provider, Internal Medicine] - See instructions Activity Restrictions/Add. Instructions Additional Instructions/Restrictions: I would like you to take the dressing off daily clean the foot with soap and water. I would like you to then place bacitracin back onto the area of burn and cover the foot. Do not wear a sock or shoe. The blister will eventually pop on its own do not pop it yourself. The antibiotics as prescribed. Return to the emergency department for any acute signs of infection including severe swelling uncontrolled pain signs of pus or if you have any other acute concerns. Clinical Impressions Clinical Impression: Burn of foot, Partial thickness burn Print Language Print Language: Malay Discharge ED Provider: Breanna Khan Adult HPI General Chief complaint: Burn/Smoke Inhalation Stated complaint: severe burn o n right foot with scalding water Time Seen by Provider: 05/09/25 22:03 Mode of Arrival: Wheelchair Source of Information: Patient Description of Symptoms (Recalled from ER Triage Doc. by RN): Pt presents to ER with a burn to R foot. PT reports spilling boiling hot water onto R foot. Immediatley after water exposure, he dried off his foot and applied OTC burn cream and soaked foot in cold tap water. Pt arrives with foot wrapped in gauze. Pt is a type 2 diabetic. + sensation and + movment during triage assessment History of Present Illness HPI narrative: Patient is a 79-year-old male with a past medical history of diabetes who presented to the emergency department with a burn to his right foot. Patient states that they were cooking a ham for [employer] and it was in a bin and wrapped in towels and the boiling water in the bin toppled over and landed on his foot. Patient states that he immediately put his foot in cool water. Patient presents to the emergency department with blistering and pain in the foot. Patient states that he has sensation and is able to move the foot. She does have a history of diabetes. Patient denies any other significant medical problems. Related Data Home Medications ?Medication ?Instructions ?Recorded ?Confirmed aspirin 81 mg tablet,delayed 81 mg PO DAILY [facility] 06/09/17 03/27/25 release (Aspir-) blood-glucose meter (Accu-Chek #1 ea 01/05/22 03/27/25 Guide Me Glucose Meter) cyanocobalamin (vitamin B-12) 2,500 mcg PO DAILY 01/16/22 03/27/25 2,500 mcg tablet multivitamin 1 tab PO DAILY 01/16/22 03/27/25 Previous Rx's ?Medication ?Instructions ?Recorded epinephrine 0.3 mg/0.3 mL 0.3 mg (0.3 mL) IM Q10M PRN 01/29/23 injection, auto-injector (EpiPen) anaphylaxis #2 ea calcium carbonate (Calcium 600) 600 mg PO BID Supplement 30 days 05/23/24 #60 tabs diphenoxylate-atropine 2.5 1 tab PO QID PRN diarrhea #30 tabs 12/04/24 mg-0.025 mg tablet (Lomotil) insulin syringe-needle U-100 0.5 #100 ea 12/11/24 mL 31 gauge x 5/16 clopidogrel 75 mg tablet 75 mg PO DAILY #30 tabs 12/14/24 vancomycin 125 mg capsule 125 mg PO QID #40 caps 12/14/24 lancets (Accu-Chek Softclix #100 ea 01/31/25 Lancets) losartan 25 mg tablet 25 mg PO DAILY Hypertension 90 02/26/25 days #90 tabs potassium chloride 10 mEq 20 meq (2 x 10 mEq) PO BID 90 days 03/08/25 capsule,extended release #360 caps insulin glargine 100 unit/mL 36 unit (0.36 mL) SQ DAILY 30 days 03/13/25 subcutaneous solution (Lantus #11.4 mL U-100 Insulin) furosemide 20 mg tablet (Lasix) 10 mg (1/2 x 20 mg) PO DAILY 03/26/25 Diuretic 90 days #45 tabs levothyroxine 88 mcg tablet 88 mcg PO DAILY hypothyroidism 90 03/26/25 days #90 tabs rosuvastatin 40 mg tablet 40 mg PO DAILY Cholesterol 90 days 03/30/25 #90 tabs fenofibrate 54 mg tablet 54 mg PO BID Cholesterol 90 days 04/09/25 #180 tabs glipizide 10 mg tablet, extended 10 mg PO BID Diabetes 90 days #180 04/10/25 release 24 hr tabs blood sugar diagnostic (Accu-Chek #100 ea 04/23/25 Guide test strips) gabapentin 300 mg capsule 300 mg PO TID Pain #90 caps 04/23/25 pregabalin 50 mg capsule (Lyrica) 50 mg PO TID pain #90 caps 05/01/25 acetaminophen 650 mg 650 mg PO Q8H PRN fever or pain 05/09/25 tablet,extended release (Tylenol 8 #20 tabs Hour) ibuprofen 600 mg tablet 600 mg PO Q8H #20 tabs 05/09/25 sulfamethoxazole 800 1 tab PO BID 5 days #10 tabs 05/09/25 mg-trimethoprim 160 mg tablet (Bactrim DS) Allergies Allergy/AdvReac Type Severity Reaction Status Date / Time promethazine (From Phenergan) Allergy Unknown Hallucinati Verified 03/27/25 10:53 ng benztropine (From Cogentin) AdvReac Severe MENTAL Verified 03/27/25 10:53 STATUS CHANGE haloperidol (From Haldol) AdvReac Severe MENTAL Verified 03/27/25 10:53 STATUS CHANGE prochlorperazine (From AdvReac Severe MENTAL Verified 03/27/25 10:53 Compazine) STATUS CHANGE diazepam (From Valium) AdvReac Intermediate Hallucinati Verified 03/27/25 10:[address] [facility] Disclaimer: The information contained in this section may have been updated after the patient was seen, as this information can be updated by other users. Medical History Atypical angina Abnormal cardiovascular stress test HLD (hyperlipidemia) HTN (hypertension) Myeloma Diabetes mellitus Abnormal EKG Surgical History Hx of cardiac cath Family History Mother Heart attack Hypertension Social History Smoking Status: Never smoker second hand exposure: No alcohol intake: never substance use type: denies use current occupational status: retired Travel in the last 8 weeks?: Inside the [place] household members: spouse housing: house marital status: current occupational exposures/hazards: No caffeine: Yes Have you lived/traveled outside [place] in past 30 days?: No Contact w/someone who lives/traveled outside [place] past 30 days?: No Exposure to someone with infectious disease in past 14 days?: No Do you have a fever (greater than 100.4 F or 38 C)?: No Have you tested positive for COVID-19?: No Exposed to someone with COVID-19 in past 14 days?: No Do you have a sore throat?: No Do you have a cough?: No Do you have any weakness?: No Do you have any diarrhea?: No Are you experiencing any unusual bleeding?: No Do you have any muscle aches/pain?: No Do you have any abdominal pain?: No Are you experiencing loss of taste or smell?: No Other Medical History Have you received the Flu Vaccine for this season: No Have you received the Pneumonia Vaccine: Yes ROS Obtained: Yes All systems reviewed & no additional complaints except as documented and Yes Systems reviewed as appropriate & no additional complaints except as documented Physical Exam General General appearance: alert and in no apparent distress Head Head exam: atraumatic, normocephalic and normal inspection Eye Eye exam: Present normal appearance, PERRL and EOMI; Absent scleral icterus ENT ENT exam: Present normal exam and normal external ear exam Neck Neck exam: Present normal inspection and full ROM Chest Chest inspection: Present normal inspection and symmetric chest wall rise Respiratory Respiratory exam: Present normal lung sounds bilaterally; Absent respiratory distress or wheezes Cardiovascular Cardiovascular exam: Present regular rate, normal rhythm and normal heart sounds Abdominal Exam Abdominal exam: Present soft and distention; Absent tenderness, guarding or rebound Extremities Exam Extremities exam: Present normal inspection and full ROM Back Exam Back exam: Present normal inspection and full ROM Neurological Exam Neurological exam: Present alert, oriented X3 and other (Station intact to the right lower extremity. And right foot.) Psychiatric Psychiatric exam: Present normal affect and normal mood Skin Skin exam: Present warm, dry and other (R foot with some erythema that is not circumferential, there is approximately 1% partial thickness burn to the medial side of the foot ) Medical Decision Making Medical Records Medical records reviewed: Yes I reviewed the patient's medical records. Screening: Per USPSTF and CDC recommendations, given the prevalence of disease in our region, it is our hospital?s policy to screen for HIV and viral Hepatitis for all patients aged 18 and over and those with ongoing risk factors. Soren Inquiry Pt receiving controlled substance: No Vital Signs: 05/09/25 22:07 05/09/25 23:53 Temperature 97.6 F 97.9 F Temperature Source Oral Oral Pulse Rate 74 Pulse Rate [Left Radial] 69 Respiratory Rate 17 18 Blood Pressure 128/78 Blood Pressure [Right Arm] 122/51 L Blood Pressure Mean [Right Arm] 74 Blood Pressure Source [Right Arm] Automatic Cuff Blood Pressure Position [Right Arm] Sitting 02 Sat by Pulse Oximetry 92 L Oxygen Delivery Method Room Air Room Air Lab Data Lab results reviewed: Yes I reviewed the patient's lab results. Orders (Tests/Meds): ED MEDICATIONS Discontinued Medications Generic Name Dose Route Start Last Admin Trade Name Freq PRN Reason Stop Dose Admin Acetaminophen 1,000 mg 05/09/25 23:07 05/09/25 23:18 Acetaminophen 500mg Tab PO 05/09/25 23:08 1,000 mg ONCE ONE Administration Bacitracin 1 gm 05/09/25 23:25 05/09/25 23:32 Bacitracin Zinc Oint 30gm Tube TP 05/09/25 23:26 1 gm ONCE ONE Administration Ibuprofen 800 mg 05/09/25 23:07 05/09/25 23:18 Ibuprofen 400 Mg Tablet PO 05/09/25 23:08 800 mg ONCE ONE Administration Tetanus/Reduced Diphtheria/Acell Pertussis 0.5 ml 05/09/25 22:33 05/09/25 22:45 Tet/Diphth/Pert-Adult 0.5ml Syringe IM 05/09/25 22:34 0.5 ml .ONCE ONE Administration Trimethoprim/Sulfamethoxazole 1 each 05/09/25 23:10 05/09/25 23:18 Sulfa/Trimethoprim 1 Tablet PO 05/09/25 23:11 1 each ONCE ONE Administration Medical Decision Narrative: Patient is a 79-year-old male with a past medical history of diabetes who presented to the emergency department with a burn to his right lower extremity. On arrival, patient is hemodynamically stable with unremarkable Eitel signs. Differential includes but not limited to: Superficial burn, circumferential burn, skin infection, deep thickness burn, amongst others. On exam, patient had some superficial erythema that was not circumferential. Patient had 1% burn to the left medial aspect of the right foot with a large blister. Patient was neurovascularly intact with an appropriate 2+ radial pulse. Patient's foot was cleaned. Patient was given a tetanus shot. Patient's blister was covered with bacitracin and wrapped. Patient was given additional wound care instructions. Given that patient is a diabetic patient was covered with antibiotics as I suspect that the blister will pop and have significantly exposed skin. Patient was given a dose of Bactrim here in the emergency department sent home with a prescription. Patient was given return precautions for signs of infection and patient was otherwise discharged home in stable condition advised to follow-up with his primary care provider. Critical Care Critical Care Time Critical Care Time: No
[2025-05-09] MEDS: TET/DIPHTH/PERT-ADULT 0.5ML SYRINGE 0.5 ML IM (22:45)
[2025-05-09] MEDS: IBUPROFEN 400 MG TABLET 800 MG PO (23:18)
[2025-05-09] MEDS: SULFA/TRIMETHOPRIM 1 TABLET 1 EACH PO (23:18)
[2025-05-09] MEDS: ACETAMINOPHEN 500MG TAB 1000 MG PO (23:18)
[2025-05-09] MEDS: BACITRACIN ZINC OINT 30GM TUBE TP (23:32)
--- NOTE | 2025-05-09 23:43 | PC.NURSE ---
wound cleaned and dressed with bacitracin, xeroform, non adherent bandages, and kerlex. Patient educated on importance of keeping wound clean, and daily dressing changes.
[2025-05-09 23:53] VITALS: BP 128/78; PULSE 74; RESP 18; TEMP 36.6; O2SAT 98
== END 2025-05-09 23:55 | disposition home or self-care (01) ==
PROVIDERS: Emergency Provider Student in an Organized Health Care Education/Training Program; PCP Family Medicine
DX: T25.221A Burn of second degree of right foot, initial encounter (principal); E11.9 Type 2 diabetes mellitus without complications; I10 Essential (primary) hypertension; E78.5 Hyperlipidemia, unspecified; X12.XXXA Contact with other hot fluids, initial encounter; Z79.4 Long term (current) use of insulin
CPT/HCPCS: 90471; 90715; 99284